=== PATIENT | male | born 1935 | race Caucasian/White ===

== ENCOUNTER 2018-04-11 18:35 | Inpatient (IN) | payer MEDICARE, BC ==
[~2018-04-11] VITALS: Ht 175.3 cm; Wt 108.0 kg
[~2018-04-11 18:35] MED LIST: CETI10TA14 PO; DOCU-141 PO; ENAL5TAB PO; FLUT1DIS3 IH; IPRA3AMP23 IH; LOVA20TA2 PO; MONT10TA22 PO; PANT40TA2 PO; PRED20TA PO; SENN-168 PO; WARF10TA22 PO; WARF7.5T23 PO
--- NOTE | 2018-04-11 18:56 | NUR ---
PT BIB [facility] C/O L GROIN PAIN AND SWELLING WHICH HAS BEEN MILD FOR A FEW DAYS BUT BECAME VERY SEVERE THIS MORNING. NO DISCOLORATION OR RASH NOTED, INITIALLY REPORTED BY PT. DISTAL CMS INTACT. 30YR HX OF L KNEE REPLACEMENT. DENIES PAIN OR SWELLING IN TESTICLES OR SCROTUM. PT IS SHORT OF BREATH BUT HAS HX OF COPD AND ASTHMA, STATES THAT THIS IS HIS BASELINE LEVEL OF SOB. PLACED ON 3L O2 VIA NC WHICH IS CONTINUOUS IN-HOME O2. SKIN WARM DRY. IN ER BED 09.
--- NOTE | 2018-04-11 19:14 | NUR ---
REPORT GIVEN TO BRONWYN TELLES FOR EDUARDO
--- NOTE | 2018-04-11 19:20 | NUR ---
IV INITIATED LEFT WRIST 18G. LABS DRAWN FROM SITE. MECHANICAL SYSTEMS DESIGNER AT BEDSIDE FOR COLLECTION. IV INTACT AND PATENT, PLACED ON SALINE LOCK
--- NOTE | 2018-04-11 19:28 | NUR ---
US AT BEDSIDE
[2018-04-11 19:35] LABS: BASOPHILS % (AUTO) 0.3 % (0.0-2.0); HEMATOCRIT 32 % (39-51); HEMOGLOBIN 10.4 g/dL (13.5-17.5); LYMPHOCYTES # (AUTO) 0.7 /CMM (0.8-4.8); LYMPHOCYTES % (AUTO) 5.1 % (20.0-44.0); MEAN CORPUSCULAR HGB CONC 32 g/dl (31.0-36.0); MEAN CORPUSCULAR VOLUME 91 fL (80-96); MONOCYTES # (AUTO) 1.3 /CMM (0.1-1.30); MONOCYTES % (AUTO) 9.2 % (2.0-12.0); NEUTROPHILS # (AUTO) 12.2 /CMM (1.8-8.9); NEUTROPHILS % (AUTO) 85.4 % (43.0-81.0); PLATELET COUNT (AUTO) 260 /CMM (150-450); RED BLOOD CELL COUNT(AUTO) 3.54 MIL/uL (4.5-6.0); WHITE BLOOD COUNT (AUTO) 14.3 K/uL (4.3-11.0)
[2018-04-11 19:43] LABS: CALCIUM, SERUM 9.2 mg/dL (8.5-10.1); CARBON DIOXIDE 28 mmol/L (21-32); CHLORIDE 103 mmol/L (98-107); CREATININE 0.7 mg/dL (0.6-1.3); GLUCOSE 144 mg/dL (74-106); POTASSIUM 4.8 mmol/L (3.5-5.1); SODIUM SERUM 138 mmol/L (136-145); UREA NITROGEN, BLOOD 22 mg/dL (7-18)
[2018-04-11 19:48] LABS: ALANINE AMINOTRANSFERASE 20 U/L (12-78); ALKALINE PHOSPHATASE 87 U/L (46-116); ASPARTATE AMINOTRANSFERASE 16 U/L (15-37); BILIRUBIN,DIRECT 0.3 mg/dL (0.0-0.2); BILIRUBIN,TOTAL 0.9 mg/dL (0.2-1.0); TOTAL PROTEIN, SERUM 6.2 g/dL (6.4-8.2)
[2018-04-11] MEDS ORDERED: IOHEXOL-300 100 ML VIAL IV ONE ×2 (20:25→21:58)
[2018-04-11] MEDS ORDERED: CT SWABBABLE VALVE TRANS SET 1 EA INFUS.SET MC ONE ×2 (20:25→21:58)
[2018-04-11] MEDS ORDERED: IV NS 0.9% 250 ML IV ONE ×2 (20:26→21:58)
--- NOTE | 2018-04-11 21:15 | NUR ---
DR. VASQUEZ, RADIOLOGY ON PHONE W/ DR. PATTON
--- NOTE | 2018-04-11 21:37 | NUR ---
Dr. Griffin, Vascular on phone w/ Dr. Morelos
[2018-04-11] MEDS ORDERED: PHYTONADIONE INJ 10 MG/1 ML AMPUL ONE (21:39)
--- NOTE | 2018-04-11 21:56 | NUR ---
BROUGHT BY RADIOLOGY FOR CT
[2018-04-11] MEDS ORDERED: NS 0.9% IV ONE (22:00)
[2018-04-11] MEDS ORDERED: IOHEXOL-350 100 ML VIAL IV ONE ×2 (22:00→22:14)
[2018-04-11] MEDS ORDERED: PHYTONADIONE IV ONE (22:00)
[2018-04-11 22:50] LABS: BASOPHILS % (AUTO) 0.2 % (0.0-2.0); HEMATOCRIT 27 % (39-51); HEMOGLOBIN 8.9 g/dL (13.5-17.5); LYMPHOCYTES # (AUTO) 0.9 /CMM (0.8-4.8); LYMPHOCYTES % (AUTO) 6.6 % (20.0-44.0); MEAN CORPUSCULAR HGB CONC 33 g/dl (31.0-36.0); MEAN CORPUSCULAR VOLUME 90 fL (80-96); MONOCYTES # (AUTO) 1.5 /CMM (0.1-1.30); MONOCYTES % (AUTO) 10.7 % (2.0-12.0); NEUTROPHILS # (AUTO) 11.3 /CMM (1.8-8.9); NEUTROPHILS % (AUTO) 82.5 % (43.0-81.0); PLATELET COUNT (AUTO) 210 /CMM (150-450); WHITE BLOOD COUNT (AUTO) 13.8 K/uL (4.3-11.0)
[2018-04-11] MEDS ORDERED: ALBUTEROL FS 2.5 MG/0.5 ML VIAL.NEB ONE (23:15)
[2018-04-11] MEDS ORDERED: ALBUTEROL FS 2.5 MG/0.5 ML VIAL.NEB NEB ONE (23:30)
--- NOTE | 2018-04-11 23:47 | NUR ---
ADMIT GUY 117-2 DX: HEMATOMA TU LAGUERRE TELECOMMUNICATIONS TECHNICIAN
--- NOTE | 2018-04-11 23:48 | NUR ---
PER VERBAL MD ORDER, SECOND EKG CANCELLED.
--- NOTE | 2018-04-11 23:56 | NUR ---
GAVE REPORT TO BELLE TELLES FOR EDUARDO
--- NOTE | 2018-04-12 00:05 | NUR ---
PT TRANSFERRED PER ACLS PROTOCOL
--- NOTE | 2018-04-12 00:05 | NUR ---
vicente notes admitted a 82 y/o male able to make needs known , with admitting dx of left hip hematoma, admission routine care rendered orders noted and carried out body check done noted with bilateral le and avinash ue noted with multiple discoloration, all needs attended too call light within reach,pts with admitting dx of left hip hematoma.pts is knda full code status ,will continue to monitor.v/s stable afebrile. pts remains on ns at 75cc/hr.infusing well.
[2018-04-12 00:19] VITALS: BP 121/49
[2018-04-12] MEDS ORDERED: ZOLPIDEM TARTRATE 5 MG TABLET PO PRN (01:00)
[2018-04-12] MEDS ORDERED: MAGNESIUM HYDROXIDE 30 ML UDC PO PRN (01:00)
[2018-04-12] MEDS ORDERED: ACETAMINOPHEN 325 MG TABLET PO PRN (01:00)
[2018-04-12] MEDS ORDERED: Z GUARD REMEDY 2 OZ OINT TP PRN (01:00)
[2018-04-12] MEDS ORDERED: ONDANSETRON HCL/PF 4 MG/2 ML VIAL IVP PRN (01:00)
[2018-04-12] MEDS ORDERED: MAG HYDROX/AL HYDROX/SIMETH 30 ML UDC PO PRN (01:00)
[2018-04-12] MEDS: IV NS 0.9% 1,000 ML IV PRN ×2 (02:45→16:50)
[2018-04-12 04:00] VITALS: BP 104/54
[2018-04-12 06:24] LABS: CALCIUM, SERUM 8.6 mg/dL (8.5-10.1); CARBON DIOXIDE 26 mmol/L (21-32); CHLORIDE 105 mmol/L (98-107); CREATININE 0.8 mg/dL (0.6-1.3); GLUCOSE 127 mg/dL (74-106); MAGNESIUM 1.9 mg/dL (1.8-2.4); POTASSIUM 4.7 mmol/L (3.5-5.1); SODIUM SERUM 139 mmol/L (136-145); UREA NITROGEN, BLOOD 22 mg/dL (7-18)
[2018-04-12] MEDS: ALBUTEROL FS 2.5 MG/3 ML VIAL.NEB NEB PRN ×2 (06:35→23:07)
[2018-04-12 06:40] LABS: HEMATOCRIT 27 % (39-51); LYMPHOCYTES # (AUTO) 0.9 /CMM (0.8-4.8); LYMPHOCYTES % (AUTO) 7.2 % (20.0-44.0); MEAN CORPUSCULAR HGB CONC 33 g/dl (31.0-36.0); MEAN CORPUSCULAR VOLUME 90 fL (80-96); MONOCYTES # (AUTO) 1.4 /CMM (0.1-1.30); MONOCYTES % (AUTO) 11.3 % (2.0-12.0); NEUTROPHILS # (AUTO) 9.9 /CMM (1.8-8.9); NEUTROPHILS % (AUTO) 81.5 % (43.0-81.0); PLATELET COUNT (AUTO) 266 /CMM (150-450); RED BLOOD CELL COUNT(AUTO) 3.04 MIL/uL (4.5-6.0); WHITE BLOOD COUNT (AUTO) 12.2 K/uL (4.3-11.0)
--- NOTE | 2018-04-12 06:59 | NUR ---
london rn note s pts remains in bed no maria del rosario noted all needs attended too call light within reach kep pts clean dry and comfortable.will endorse to next rn day shift for continuity of care,
--- NOTE | 2018-04-12 07:25 | NUR ---
RN OPENING NOTE RECEIVED PT ON BED ASLEEP BUT EASILY AWAKEN. A&OX3. NO SIGNS AND SYMPTOMS OF ANY DISTRESS. NO COMPLAINS OF ANY PAIN AT THIS TIME. SKIN IS INTACT EXCEPT FOR LEFT THIGH HEMATOMA. AND DISCOLORATION OF BLE. NS RUNNING AT 75 ML/HR. HAS LEFT WRIST IV #18 AND RIGHT HAND #18. SAFETY MEASURES CHECKED. BED LOCKED AND IN LOWEST POSITION. CALL LIGHT WITHIN REACH. WILL CONT TO MONITOR.
[2018-04-12 08:00] VITALS: BP 121/66
[2018-04-12] MEDS ORDERED: PANTOPRAZOLE 40 MG VIAL IV SCH (09:00)
[2018-04-12] MEDS: HYDROCODONE/APAP 5/325MG 1 EACH TABLET PO PRN (09:29)
[2018-04-12 12:00] VITALS: BP 114/54
[2018-04-12] MEDS ORDERED: FURO-144 PO (13:44)
--- NOTE | 2018-04-12 14:00 | NUR ---
RN NOTE CLARIFIED WITH MARY ANNE OSULLIVAN NP ABOUT THE PLASMA ORDER. OK'D TO DC.
[2018-04-12 16:00] VITALS: BP 109/58
[2018-04-12] MEDS: DOCUSATE SODIUM 100 MG CAPSULE PO SCH (16:40)
[2018-04-12] MEDS: ENALAPRIL MALEATE (5 MG) 5 MG TABLET PO SCH (16:41)
--- NOTE | 2018-04-12 19:23 | NUR ---
RN CLOSING NOTE REPORT GIVEN TO NOC SHIFT. PATIENT AWAKE AND ALERT WATCHING TV. ALERT AND ORIENTED X3-4. IV FLUIDS RUNNING NS AT 75 CC/HR. NO COMPLAINS OF ANY PAIN AT THIS TIME. WAS GIVEN NORCO FOR PAIN NO DISTRESS OR ANY SOB. ON 3L NC SATING 98%. DIAPER CHANGED 3X FOR DAY SHIFT. NO BM. WAS GIVEN COLACE PER MD ORDER. BED LOCKED AND ON LOWEST POSITION. CALL LIGHT WITHIN REACH. WILL ENDORSE TO NOC SHIFT.
[2018-04-12 20:00] VITALS: BP 103/51
--- NOTE | 2018-04-12 20:00 | NUR ---
AUTOMATION CONTROLS SPECIALIST NOTES RECEIVED PT AOX4 COMFORTABLE IN BED. ON MONITOR V PACING 80. VS STABLE AFEBRILE. PT ON NC 3L OF O2 SATING 95%. NO SOB. NO DISTRESS NOTED. PAIN 0. DUE MEDS GIVEN ORDERED. ALL NEEDS ATTENDED TO. CALL LIGHT WITHIN REACH. KEEP PATIENT COMFORTABLE. BED ON LOCK AND LOWEST POSITION. WILL CONTINUE TO MONITOR.
[2018-04-12] MEDS: MONTELUKAST SODIUM (10MG) 10 MG TABLET PO SCH (21:21)
[2018-04-12] MEDS: ATORVASTATIN 10 MG TABLET PO SCH (21:21)
[2018-04-12] MEDS: PANTOPRAZOLE 40 MG TABLET.DR PO SCH (21:21)
[2018-04-12] MEDS: SENNOSIDES 8.6 MG TABLET PO SCH (21:21)
[2018-04-13] VITALS: BP 110/50
[2018-04-13 04:00] VITALS: BP 110/59
[2018-04-13] MEDS: ALBUTEROL FS 2.5 MG/3 ML VIAL.NEB NEB PRN ×6 (04:07→23:54)
--- NOTE | 2018-04-13 06:42 | NUR ---
BELT BRANDER NOTES PT STABLE. NO COMPLAINTS OF PAIN. NO DISTRESS NOTED. NO EDUARDO NOTED. BED LOCKED AND AT LOWEST POSITION. SAFETY MEASURES FOLLOWED AT ALL TIMES. WILL ENDORSE TO AM NURSE FOR CONTINUITY OF CARE.
[2018-04-13 07:08] LABS: HEMATOCRIT 22 % (39-51); HEMOGLOBIN 7.1 g/dL (13.5-17.5); LYMPHOCYTES # (AUTO) 0.8 /CMM (0.8-4.8); LYMPHOCYTES % (AUTO) 6.6 % (20.0-44.0); MEAN CORPUSCULAR HGB CONC 33 g/dl (31.0-36.0); MEAN CORPUSCULAR VOLUME 90 fL (80-96); MONOCYTES # (AUTO) 1.8 /CMM (0.1-1.30); MONOCYTES % (AUTO) 14.1 % (2.0-12.0); NEUTROPHILS # (AUTO) 10.1 /CMM (1.8-8.9); NEUTROPHILS % (AUTO) 79.3 % (43.0-81.0); PLATELET COUNT (AUTO) 208 /CMM (150-450); WHITE BLOOD COUNT (AUTO) 12.7 K/uL (4.3-11.0)
--- NOTE | 2018-04-13 07:26 | NUR ---
RN OPENING NOTE RECEIVED PT ON BED AWAKE WATCHING TV. A&OX3-4. NO SIGNS AND SYMPTOMS OF ANY DISTRESS. NO COMPLAINS OF ANY PAIN AT THIS TIME. SKIN IS INTACT EXCEPT FOR LEFT THIGH HEMATOMA. AND DISCOLORATION OF BLE. NS RUNNING AT 75 ML/HR. HAS LEFT WRIST IV #18 AND RIGHT HAND #18. SAFETY MEASURES CHECKED. BED LOCKED AND IN LOWEST POSITION. CALL LIGHT WITHIN REACH. WILL CONT TO MONITOR THROUGHOUT THE SHIFT
[2018-04-13 07:31] LABS: CHOLESTEROL 83 mg/dL (<200); HDL CHOLESTEROL 39 mg/dL (40-60); LDL 37 mg/dL (0-99); TRIGLYCERIDES 57 mg/dL (30-150)
[2018-04-13 07:32] LABS: ALANINE AMINOTRANSFERASE 15 U/L (12-78); ALBUMIN 2.4 g/dL (3.4-5.0); ALKALINE PHOSPHATASE 60 U/L (46-116); ASPARTATE AMINOTRANSFERASE 19 U/L (15-37); BILIRUBIN,TOTAL 0.6 mg/dL (0.2-1.0); CALCIUM, SERUM 8.3 mg/dL (8.5-10.1); CARBON DIOXIDE 26 mmol/L (21-32); CHLORIDE 108 mmol/L (98-107); CREATININE 0.7 mg/dL (0.6-1.3); GLUCOSE 118 mg/dL (74-106); POTASSIUM 4.4 mmol/L (3.5-5.1); SODIUM SERUM 142 mmol/L (136-145); TOTAL PROTEIN, SERUM 5.1 g/dL (6.4-8.2); UREA NITROGEN, BLOOD 27 mg/dL (7-18)
[2018-04-13 08:00] VITALS: BP 117/55
[2018-04-13] MEDS: IV NS 0.9% 1,000 ML IV PRN ×2 (08:11→23:46)
[2018-04-13] MEDS: HYDROCODONE/APAP 5/325MG 1 EACH TABLET PO PRN ×2 (08:15→16:33)
[2018-04-13] MEDS: DOCUSATE SODIUM 100 MG CAPSULE PO SCH ×2 (08:40→16:22)
[2018-04-13] MEDS: cetrizine 10 MG TABLET PO SCH (08:40)
[2018-04-13] MEDS: predniSONE 10 MG TABLET PO SCH (08:41)
[2018-04-13] MEDS: ENALAPRIL MALEATE (5 MG) 5 MG TABLET PO SCH ×2 (08:41→16:27)
[2018-04-13] MEDS: FLUTICASONE/VILANTEROL 1 EACH BLST.W.DEV IH SCH (08:43)
[2018-04-13] MEDS ORDERED: FLUTICASONE/SALMETEROL DISKUS IH SCH (09:00)
--- NOTE | 2018-04-13 11:17 | NUR ---
O2 FLOW DECREASED TO 2 LPM SPO2 97% TO 99% Addendum: 04/13/18 at 1117 by JOSE ROBERTO LAM RT Amended: Links added.
[2018-04-13 12:00] VITALS: BP_SYST 108; BP_SYST 127; BP_DIAS 51; BP_DIAS 76
[2018-04-13] MEDS: PANTOPRAZOLE 40 MG TABLET.DR PO SCH ×2 (13:53→21:32)
[2018-04-13 16:00] VITALS: BP 114/52
--- NOTE | 2018-04-13 19:00 | NUR ---
RN NOTES RECEIVED PATIENT AWAKE,ALERT,NOT IN ANY DISTRESS,CONVERSES,COHERENT AND APPROPRIATE.NOTED BOTH LOWER EXTREMITY SWELLING( M0RE ON THE LEFT) WITH HEMATOMA LEFT THIGH(STATES IT HURTS AND UNABLE TO MOVE LEFT LEG DUE TO PAIN AND SWELLING).COMFORT CARE DONE ,NEEDS ATTENDED.
--- NOTE | 2018-04-13 19:08 | NUR ---
RN CLOSING NOTE REPORT GIVEN TO NOC SHIFT RN. PATIENT ON BED AWAKE AND WATCHING TV. A&Ox4. NO COMPLAINS OF ANY PAIN AT THIS TIME. NO DISTRESS NO SOB. ON 2L NC AND SATING WELL AT 98%. DOCTOR ISAIAH OBRIEN'D THE PROTONIX IV DUE TO DUPLICATION. PATIENT ATE HIS FOOD BETTER COMPARED TO YESTERDAY. NO BOWEL MOVEMENT IN MY SHIFT. REPEAT CBC ORDERED FOR TOMORROW. IV RUNNING NS AT 75CC/HR. ASKED FOR NORCO TWICE TODAY. BED LOCKED AND ON LOWEST POSITION. CALL LIGHT WITHIN REACH. ALL NEEDS MET DURING AM SHIFT.
[2018-04-13 20:00] VITALS: BP 99/49
[2018-04-13] MEDS: ATORVASTATIN 10 MG TABLET PO SCH (21:32)
[2018-04-13] MEDS: SENNOSIDES 8.6 MG TABLET PO SCH (21:32)
[2018-04-13] MEDS: MONTELUKAST SODIUM (10MG) 10 MG TABLET PO SCH (21:32)
--- NOTE | 2018-04-13 23:54 | NUR ---
RN NOTES REMAINS STABLE,AWAKE,ALERT,NOT IN ANY DISTRESS.CARE TRANSFERED TO BAN TELLES ,REPORT GIVEN.
[2018-04-14] VITALS: BP 123/65
[2018-04-14 04:00] VITALS: BP 120/60
[2018-04-14] MEDS: ALBUTEROL FS 2.5 MG/3 ML VIAL.NEB NEB PRN ×4 (04:11→21:08)
[2018-04-14] MEDS: HYDROCODONE/APAP 5/325MG 1 EACH TABLET PO PRN ×2 (05:42→11:46)
--- NOTE | 2018-04-14 05:50 | NUR ---
TELE-1/BACK GRINDER PT NOTED WITH MORE SCROTAL SWELLING AND BRUISING THAN PREVIOUSLY NOTED. PICTURE TAKEN AND PLACED IN CHART. WILL ENDORSE TO AM SHIFT TO FOLLOW UP WITH MEDICAL TEAM. PT MEDICATED FOR PAIN. WILL CONTINUE TO MONITOR.
[2018-04-14 06:17] LABS: BASOPHILS % (AUTO) 0.1 % (0.0-2.0); HEMATOCRIT 21 % (39-51); LYMPHOCYTES # (AUTO) 0.9 /CMM (0.8-4.8); LYMPHOCYTES % (AUTO) 8.1 % (20.0-44.0); MEAN CORPUSCULAR HGB CONC 33 g/dl (31.0-36.0); MEAN CORPUSCULAR VOLUME 91 fL (80-96); MONOCYTES # (AUTO) 1.3 /CMM (0.1-1.30); MONOCYTES % (AUTO) 11.3 % (2.0-12.0); NEUTROPHILS # (AUTO) 9.3 /CMM (1.8-8.9); NEUTROPHILS % (AUTO) 80.5 % (43.0-81.0); PLATELET COUNT (AUTO) 222 /CMM (150-450); RED BLOOD CELL COUNT(AUTO) 2.31 MIL/uL (4.5-6.0); WHITE BLOOD COUNT (AUTO) 11.6 K/uL (4.3-11.0)
[2018-04-14 06:22] LABS: HEMOGLOBIN 6.9 g/dL (13.5-17.5)
--- NOTE | 2018-04-14 06:28 | NUR ---
TELE-1/WELLNESS PROGRAM MANAGER PT HGB 6.9 1UNIT PRBC ORDERED PER STANDING ORDER. WILL ENDORSE TO AM SHIFT.
[2018-04-14 06:32] LABS: CALCIUM, SERUM 8.5 mg/dL (8.5-10.1); CARBON DIOXIDE 29 mmol/L (21-32); CHLORIDE 109 mmol/L (98-107); CREATININE 0.7 mg/dL (0.6-1.3); GLUCOSE 125 mg/dL (74-106); MAGNESIUM 2.1 mg/dL (1.8-2.4); PHOSPHORUS 3.1 mg/dL (2.5-4.9); POTASSIUM 4.6 mmol/L (3.5-5.1); SODIUM SERUM 145 mmol/L (136-145); UREA NITROGEN, BLOOD 26 mg/dL (7-18)
[2018-04-14 06:46] LABS: FERRITIN 118 ng/mL (8-388)
[2018-04-14 06:47] LABS: IRON, SERUM 11 ug/dl (50-175); TOTAL IRON BINDING CAPACITY 169 ug/dl (250-450)
[2018-04-14 06:56] LABS: LYMPHOCYTES % (MANUAL) 10 % (16-48); MONOCYTES % (MANUAL) 12 % (0-11.0); NEUTROPHILS % (MANUAL) 78 (42-76)
--- NOTE | 2018-04-14 07:56 | NUR ---
RN NOTES RECEIVED PT ON BED ASLEEP BUT EASILY AWAKEN. A&OX3. NOT ON ANY FORM OF DISTRESS. WITH NASAL CANNULA O2 ON 2LPM, SATING AT 93%, V PACING ON THE MONITOR HR AT 76, IV LINE ON THE THE L WRIST AND R HAND BOTH G 18: IN PLACE AND INTACT. NS AT 75 CC/HR INFUSING WELL OVER THE L WRIST. SKIN IS INTACT, WITH LEFT THIGH HEMATOMA, DISCOLORATION OF BLE AND SWELLING OF THE SCROTUM. HOB ELEVATED. ENCOURAGE TO CALL FOR SAFETY. SAFETY MEASURES OBSERVED AND MAINTAINED. BED LOCKED AND IN LOWEST POSITION. CALL LIGHT WITHIN REACH. WILL CONT TO MONITOR.
[2018-04-14 08:00] VITALS: BP 117/57
[2018-04-14] MEDS: ENSURE ENLIVE 237 ML LIQUID (VANILLA) PO SCH ×3 (08:41→17:18)
[2018-04-14] MEDS: cetrizine 10 MG TABLET PO SCH (08:42)
[2018-04-14] MEDS: PANTOPRAZOLE 40 MG TABLET.DR PO SCH ×2 (08:42→20:57)
[2018-04-14] MEDS: ENALAPRIL MALEATE (5 MG) 5 MG TABLET PO SCH ×2 (08:42→17:00)
[2018-04-14] MEDS: FLUTICASONE/VILANTEROL 1 EACH BLST.W.DEV IH SCH (08:42)
[2018-04-14] MEDS: DOCUSATE SODIUM 100 MG CAPSULE PO SCH ×2 (08:42→17:15)
[2018-04-14] MEDS: predniSONE 10 MG TABLET PO SCH (08:42)
[2018-04-14] MEDS ORDERED: IV NS 0.9% 250 ML IV ONE (09:00)
--- NOTE | 2018-04-14 11:00 | NUR ---
RN NOTES INFORMED THAT BLOOD TRANSFUSION WAS DONE, DR COLON ASKED IF HE WOULD WANT ANOTHER H & H, BUT VERBALIZED THAT TOMORROW CHECK IS FINE.
--- NOTE | 2018-04-14 13:24 | NUR ---
RN NOTES PAGED DR COLON REGARDING PATIENT'S CONCERN ON BREATHING TREATMENT, AWAITING RESPONSE
--- NOTE | 2018-04-14 15:30 | NUR ---
RN NOTES REPAGED DR COLON REGARDING PATIENT'S CONCERN ON BREATHING TREATMENT AND FAMILY'S CONCERN, AWAITING PATIENT'S RESPONSE
[2018-04-14 16:00] VITALS: BP 112/48
[2018-04-14] MEDS: SOD FERRIC GLUC 125 MG in IV NS 0.9% 100 ML IV SCH (16:18)
[2018-04-14] MEDS: IV NS 0.9% 1,000 ML IV PRN (16:19)
--- NOTE | 2018-04-14 17:00 | NUR ---
RN NOTES ENALAPRIL NOT GIVEN DUE TO DIASTOLIC BLOOD PRESSURE BELOW PARAMETER.
--- NOTE | 2018-04-14 19:30 | NUR ---
RN NOTES ENDORSED PATIENT FOR CONTINUITY OF CARE. PT IN STABLE CONDITION. NO ACUTE CHANGES THROUGHOUT SHIFT. SAFETY MEASURES AND ASPIRATION PRECAUTION OBSERVED AT ALL TIMES. ALL NEEDS ANTICIPATED. ENDORSED TO INCOMING RN ABOUT PATIENT AND ADITYALY'S CONCERNS
[2018-04-14 19:49] VITALS: BP 111/52
[2018-04-14] MEDS: SENNOSIDES 8.6 MG TABLET PO SCH (21:00)
[2018-04-14] MEDS: MONTELUKAST SODIUM (10MG) 10 MG TABLET PO SCH (21:01)
[2018-04-14] MEDS: ATORVASTATIN 10 MG TABLET PO SCH (21:01)
--- NOTE | 2018-04-14 21:30 | NUR ---
RN NOTES, INFORMED DIONICIO LAGUERRE HEAVY DUTY MECHANIC ABOUT PATIENT AND FAMILY CONCERNS ABOUT EXCESSIVE SWOLLEN AND DISCOLORATION IN PATIENT'S SCROTUM, AND HE REPLIED WITH NEW ORDER FOR ULTRASOUND OF SCROTUM IN THE MORNING, ALSO INFORMED THAT PATIENT IS REQUESTING THE BREATHING TREATMENT AROUND THE CLOCK WHEN ORDER IS PRN, AND PATIENT STATEMENT THAT HE NEEDS THE TREATMENT ROUTINE, AND HE REPLIED WITH ORDER TO DC THE PRN ORDER AND START BREATHING TREATMENT Q4HRS ROUTINE, NOTED AND CARRIED OUT.
[2018-04-15] MEDS: ALBUTEROL FS 2.5 MG/3 ML VIAL.NEB NEB SCH ×7 (01:46→23:43)
[2018-04-15] MEDS: HYDROCODONE/APAP 5/325MG 1 EACH TABLET PO PRN ×2 (03:49→21:53)
[2018-04-15 04:00] VITALS: BP 118/60
[2018-04-15 06:57] LABS: HEMATOCRIT 22 % (39-51); HEMOGLOBIN 7.5 g/dL (13.5-17.5); LYMPHOCYTES # (AUTO) 0.7 /CMM (0.8-4.8); LYMPHOCYTES % (AUTO) 7.6 % (20.0-44.0); MEAN CORPUSCULAR HGB CONC 34 g/dl (31.0-36.0); MEAN CORPUSCULAR VOLUME 91 fL (80-96); MONOCYTES # (AUTO) 1.2 /CMM (0.1-1.30); MONOCYTES % (AUTO) 13.6 % (2.0-12.0); NEUTROPHILS # (AUTO) 7.2 /CMM (1.8-8.9); NEUTROPHILS % (AUTO) 78.8 % (43.0-81.0); PLATELET COUNT (AUTO) 214 /CMM (150-450); RED BLOOD CELL COUNT(AUTO) 2.43 MIL/uL (4.5-6.0); WHITE BLOOD COUNT (AUTO) 9.2 K/uL (4.3-11.0)
[2018-04-15 07:26] LABS: CALCIUM, SERUM 8.5 mg/dL (8.5-10.1); CARBON DIOXIDE 28 mmol/L (21-32); CHLORIDE 109 mmol/L (98-107); CREATININE 0.7 mg/dL (0.6-1.3); GLUCOSE 141 mg/dL (74-106); POTASSIUM 4.2 mmol/L (3.5-5.1); SODIUM SERUM 143 mmol/L (136-145); UREA NITROGEN, BLOOD 26 mg/dL (7-18)
--- NOTE | 2018-04-15 07:45 | NUR ---
RN NOTE: RECEIVED PATIENT IN BED, AWAKE, ALERT AND VERBALLY RESPONSIVE. RESPIRATION WAS EVEN AND UNLABORED SATURATING 98% IN O2 2L/MIN VIA NC. DENIED ANY PAIN. (L) FA IV SITE NOTED PATENT AND INTACT INFUSING NS @75ML/HR. HOB ELEVATED. BED ALARMED AND LOCKED AT ALL TIMES. CALL LIGHT WITHIN REACH. NEEDS ANTICIPATED.
[2018-04-15] MEDS: ENSURE ENLIVE 237 ML LIQUID (VANILLA) PO SCH ×3 (07:54→18:14)
[2018-04-15 08:00] VITALS: BP 129/58
[2018-04-15 08:09] LABS: IMMUNOGLOBULIN A, SERUM 42 mg/dL (61-437); IMMUNOGLOBULIN G, SERUM 302 mg/dL (700-1600); IMMUNOGLOBULIN M, SERUM 620 mg/dL (15-143)
--- NOTE | 2018-04-15 08:32 | NUR ---
WOUND CARE CONSULT: PT FOLLOWED BY PLASTIC SURGEON FOR WOUND CARE. DEFER TO SURGICAL TEAM FOR WOUND TREATMENT PLAN. DISCUSSED PRESSURE ULCER PREVENTION WITH NURSING STAFF. WILL SEE PRN. PT ON ELMO ISOFLEX LOW AIRLOSS BED.
[2018-04-15] MEDS: PANTOPRAZOLE 40 MG TABLET.DR PO SCH ×2 (08:53→21:45)
[2018-04-15] MEDS: DOCUSATE SODIUM 100 MG CAPSULE PO SCH ×2 (08:53→16:38)
[2018-04-15] MEDS: predniSONE 10 MG TABLET PO SCH (08:53)
[2018-04-15] MEDS: FLUTICASONE/VILANTEROL 1 EACH BLST.W.DEV IH SCH (08:53)
[2018-04-15] MEDS: cetrizine 10 MG TABLET PO SCH (08:54)
[2018-04-15] MEDS: ENALAPRIL MALEATE (5 MG) 5 MG TABLET PO SCH ×2 (08:54→16:38)
[2018-04-15 10:19] LABS: *SPE ALBUMIN 2.5 g/dL (2.9-4.4); *SPE ALPHA-1-GLOBULIN 0.4 g/dL (0.0-0.4); *SPE ALPHA-2-GLOBULIN 0.7 g/dL (0.4-1.0); *SPE BETA GLOBULIN 0.6 g/dL (0.7-1.3); *SPE GLOBULIN, TOTAL 2.6 g/dL (2.2-3.9); *SPE M-SPIKE Note: g/dL (Not Observed); *SPEGAMMA GLOBULIN 0.8 g/dL (0.4-1.8)
[2018-04-15] MEDS: IV NS 0.9% 1,000 ML IV PRN (11:57)
[2018-04-15 12:00] VITALS: BP 139/50
[2018-04-15] MEDS: SOD FERRIC GLUC 125 MG in IV NS 0.9% 100 ML IV SCH (13:48)
[2018-04-15] MEDS: LEVOFLOXACIN 500 MG /D5W 100ML 500 MG in PREMIX 1 EA IV SCH (15:01)
[2018-04-15 16:00] VITALS: BP 121/44
[2018-04-15] MEDS: IPRATROPIUM NEB FS 0.5 MG/2.5 ML AMPUL.NEB NEB SCH ×2 (19:54→23:43)
[2018-04-15 20:00] VITALS: BP 123/57
--- NOTE | 2018-04-15 20:00 | NUR ---
GUY RN NOTES RECEIVED PT IN BED A/A&OX4. NOT ON ANY FORM OF DISTRESS. WITH NASAL CANNULA O2 ON 2LPM, SATING > 95%, IV LINE IN PLACE AND INTACT. SKIN IS INTACT, WITH LEFT THIGH HEMATOMA, DISCOLORATION OF BLE AND SWELLING OF THE SCROTUM. HOB ELEVATED. ENCOURAGE TO CALL FOR SAFETY. SAFETY MEASURES OBSERVED AND MAINTAINED. BED LOCKED AND IN LOWEST POSITION. CALL LIGHT WITHIN REACH. WILL CONT TO MONITOR.
--- NOTE | 2018-04-15 20:11 | NUR ---
RN NOTE: PATIENT REMAINED ON STABLE CONDITION. REPORT GIVEN TO PM SHIFT NURSE FOR CONTINUITY OF CARE.
[2018-04-15] MEDS: ATORVASTATIN 10 MG TABLET PO SCH (21:45)
[2018-04-15] MEDS: MONTELUKAST SODIUM (10MG) 10 MG TABLET PO SCH (21:45)
[2018-04-15] MEDS: SENNOSIDES 8.6 MG TABLET PO SCH (21:45)
--- NOTE | 2018-04-15 22:00 | NUR ---
RN NOTES PATIENT HAS BEEN OFFERED TO BE CLEANED, TURNED AND REPOSITIONED BUT PATIENT REFUSED AT THIS TIME BY SAYING THAT IT WILL LANDRY. ALL RISKS AND BENEFITS HAVE BEEN EXPLAINED TO THE PATIENT. WILL TRY LATER AGAIN.
[2018-04-16] MEDS: ALBUTEROL FS 2.5 MG/3 ML VIAL.NEB NEB SCH ×6 (03:53→23:06)
[2018-04-16] MEDS: IPRATROPIUM NEB FS 0.5 MG/2.5 ML AMPUL.NEB NEB SCH ×6 (03:53→23:06)
[2018-04-16 04:00] VITALS: BP 141/66
[2018-04-16] MEDS: HYDROCODONE/APAP 5/325MG 1 EACH TABLET PO PRN ×2 (06:57→16:59)
--- NOTE | 2018-04-16 07:36 | NUR ---
RN NOTES RECEIVED REPORT FROM FILTER BED PLACER RN. PT IS SITTING IN BED RECEIVING BREAKFAST. FILTER BED PLACER RN GAVE PT NORCO JUST BEFORE ONCOMING SHIFT SEE FILTER BED PLACER NURSE FOR REASSESSMENT. PT IS AWAKE AND ALERT AND STATES THAT HE WOULD LIKE TO BE CHANGED AFTER THE NORCO KICKS IN AND AFTER HE FINISHES BREAKFAST. PT STATES THAT HE HAS NO DIFFICULTLY BREATHING AT PRESENT MOMENT. PT IS ON 2 L O2 VIA NC SAT AT 98%. PT HAS A 20 GAUGE ON L FOREARM.
[2018-04-16] MEDS: ENSURE ENLIVE 237 ML LIQUID (VANILLA) PO SCH ×3 (07:47→18:08)
[2018-04-16 08:00] VITALS: BP 119/62
[2018-04-16 08:08] LABS: BASOPHILS % (AUTO) 0.1 % (0.0-2.0); HEMATOCRIT 22 % (39-51); HEMOGLOBIN 7.5 g/dL (13.5-17.5); LYMPHOCYTES # (AUTO) 0.8 /CMM (0.8-4.8); MEAN CORPUSCULAR HGB CONC 34 g/dl (31.0-36.0); MEAN CORPUSCULAR VOLUME 91 fL (80-96); NEUTROPHILS # (AUTO) 6.9 /CMM (1.8-8.9); NEUTROPHILS % (AUTO) 78.9 % (43.0-81.0); PLATELET COUNT (AUTO) 249 /CMM (150-450); RED BLOOD CELL COUNT(AUTO) 2.44 MIL/uL (4.5-6.0); WHITE BLOOD COUNT (AUTO) 8.7 K/uL (4.3-11.0)
[2018-04-16 08:12] LABS: CALCIUM, SERUM 8.8 mg/dL (8.5-10.1); CARBON DIOXIDE 30 mmol/L (21-32); CHLORIDE 108 mmol/L (98-107); CREATININE 0.6 mg/dL (0.6-1.3); GLUCOSE 104 mg/dL (74-106); POTASSIUM 4.6 mmol/L (3.5-5.1); SODIUM SERUM 144 mmol/L (136-145); UREA NITROGEN, BLOOD 23 mg/dL (7-18)
[2018-04-16] MEDS: FLUTICASONE/VILANTEROL 1 EACH BLST.W.DEV IH SCH (08:32)
[2018-04-16] MEDS: predniSONE 10 MG TABLET PO SCH (08:32)
[2018-04-16] MEDS: cetrizine 10 MG TABLET PO SCH (08:33)
[2018-04-16] MEDS: ENALAPRIL MALEATE (5 MG) 5 MG TABLET PO SCH ×2 (08:33→16:57)
[2018-04-16] MEDS: DOCUSATE SODIUM 100 MG CAPSULE PO SCH ×2 (08:34→16:58)
[2018-04-16] MEDS: PANTOPRAZOLE 40 MG TABLET.DR PO SCH ×2 (08:35→21:49)
--- NOTE | 2018-04-16 10:00 | NUR ---
RN NOTE: 8316 THE ASSIGNED CASKET INSPECTOR WAS DOING AM CARE TO THE PATIENT AND WAS TURNING THE PATIENT TO HIS RIGHT SIDE. THE CASKET INSPECTOR ACCIDENTALLY NOTED A SKIN TEAR ON THE (L) LOWER LEG AND SHE REPORTED IT TO THE ASSIGNED RN. THE ASSIGNED RN WENT INTO THE ROOM AND ASSESSED THE PATIENT AND THE (L) LOWER LEG SKIN TEAR. PATIENT DENIED PAIN. (L) LOWER LEG SKIN TEAR WAS NOTED MEASURING 9.0 X 0.1 CM NOTED WITH SEROUS FLUID COMING OUT AND MINIMAL BLEEDING. RN CALLED AND PAGED KEE DUMONT NP AND DOREEN (WOUND CARE NURSE). PATIENT'S SKIN TEAR ON THE (L) LEG WAS CLEANSED WITH NS. PAT DRY. APPLIED XEROFORM AND COVERED WITH ABDOMINAL PAD AND WRAPPED WITH KERLIX. PATIENT TOLERATED IT WELL. VOCATIONAL EDUCATION PROFESSIONAL NURSE WAS AWARE OF THE SKIN TEAR ON THE (L) LOWER LEG. 0994 RECEIVED A RESPONSE FROM GERRY SWEET AND HE AGREED TO DO A WOUND CONSULT. DOREEN, WOUND NURSE CAME AND ASSESSED THE PATIENT AND SHE CALLED DR. BANUELOS (PRODUCTION LEADER) THAT SEES THE PATIENT OUTPATIENT PER PATIENT. MD WILL BE COMING ANY TIME TODAY TO SEE THE PATIENT.
--- NOTE | 2018-04-16 10:14 | NUR ---
WOUND CARE CONSULT: PT SEEN URGENTLY PER DENTAL HYGIENE INSTRUCTOR FOR LARGE SKIN TEAR TO LEFT LOWER LEG. SKIN TEAR MEASURES 9CM X 0.1CM X UTD (NOT PROBED) DUE TO EDEMA AND CONCERN FOR BLEEDING. WOUND CLEANSED WITH NS, XEROFORM DSG APPLIED, COVERED WITH ABD PAD AND GENTLY SECURED WITH KERLIX BY RN. PT'S DIESEL DINKEY ENGINEER DR BANUELOS PAGED TO SEE PT. WILL SEE PRN.
[2018-04-16 12:00] VITALS: BP 119/58
[2018-04-16] MEDS: LEVOFLOXACIN 500 MG /D5W 100ML 500 MG in PREMIX 1 EA IV SCH (13:38)
[2018-04-16] MEDS: SOD FERRIC GLUC 125 MG in IV NS 0.9% 100 ML IV SCH (15:18)
[2018-04-16 16:00] VITALS: BP 127/54
--- NOTE | 2018-04-16 17:14 | NUR ---
RN NOTE: RECEIVED AN ORDER FROM KEE DUMONT NP RE: THE STANDBY 1 UNIT PRBC FOR THE PATIENT FOR TOMORROW. ORDER, NOTED AND CARRIED OUT. PATIENT MADE AWARE.
--- NOTE | 2018-04-16 19:30 | NUR ---
RN CLOSING NOTES GAVE REPORT TO ESTATE ATTORNEY RN. PT IS RESTING. GAVE PT NORCO JUST BEFORE ONCOMING SHIFT ARRIVED. PT IS AWAKE AND ALERT. PT STATES THAT HE HAS NO DIFFICULTLY BREATHING AT PRESENT MOMENT. PT IS ON 2 L O2 VIA NC SAT AT 98%. PT HAS A 20 GAUGE ON L FOREARM. NIGHT RN RECEIVED REPORT AND ACKNOWLEDGE PT WILL BE NPO AFTER MIDNIGHT FOR PROCEDURE. CONSENT WAS SIGNED.
[2018-04-16 20:00] VITALS: BP 122/61
--- NOTE | 2018-04-16 20:00 | NUR ---
GUY RN NOTES RECEIVED PT IN BED A/A&OX4. NOT ON ANY FORM OF DISTRESS. WITH NASAL CANNULA O2 ON 2LPM, SATING > 95%, IV LINE IN PLACE AND INTACT. PATIENT HAS LEFT THIGH HEMATOMA, DISCOLORATION OF BLE AND SWELLING OF THE SCROTUM. HOB ELEVATED. ENCOURAGE TO CALL FOR SAFETY. SAFETY MEASURES OBSERVED AND MAINTAINED. BED LOCKED AND IN LOWEST POSITION. CALL LIGHT WITHIN REACH. WILL CONT TO MONITOR PATIENT CLOSELY.
[2018-04-16] MEDS: ATORVASTATIN 10 MG TABLET PO SCH (21:48)
[2018-04-16] MEDS: SENNOSIDES 8.6 MG TABLET PO SCH (21:49)
[2018-04-16] MEDS: MONTELUKAST SODIUM (10MG) 10 MG TABLET PO SCH (21:49)
[2018-04-17] MEDS: HYDROCODONE/APAP 5/325MG 1 EACH TABLET PO PRN ×3 (00:39→21:11)
[2018-04-17] MEDS: IPRATROPIUM NEB FS 0.5 MG/2.5 ML AMPUL.NEB NEB SCH ×6 (03:21→23:23)
[2018-04-17] MEDS: ALBUTEROL FS 2.5 MG/3 ML VIAL.NEB NEB SCH ×6 (03:21→23:23)
[2018-04-17 04:00] VITALS: BP 124/55
--- NOTE | 2018-04-17 06:42 | NUR ---
GUY RN NOTES PATIENT IS IN BED A/A&OX4. NOT ON ANY FORM OF DISTRESS. WITH NASAL CANNULA O2 ON 2LPM, SATING > 95%, IV LINE IN PLACE AND INTACT. PATIENT HAS LEFT THIGH HEMATOMA, DISCOLORATION OF BLE AND SWELLING OF THE SCROTUM. HOB ELEVATED. ENCOURAGED TO CALL FOR SAFETY. SAFETY MEASURES OBSERVED AND MAINTAINED. PATIENT WAS NPO SINCE MIDNIGHT. WOUND CARE PROVIDED.BED LOCKED AND IN LOWEST POSITION. CALL LIGHT WITHIN REACH. WILL ENDORSE PATIENT CARE TO AM RN FOR ASSISTED LIVING HOME DIRECTOR..
--- NOTE | 2018-04-17 07:30 | NUR ---
RN AM SHIFT NOTE PATIENT IN BED ALERT X4. IV PATENT AND INTACT. NPO STATUS REMAINS, DISCUSSED PROCEDURE WITH PATIENT HE IS AWARE OF PROCEDURE TODAY. HOLD ALL PO MEDICATIONS PER MD ORDERS. NO LABS DONE FOR TODAY. BLOOD BANK CALLED BLOOD IS READY FOR TRANSFUSION, PRECAUTIONARY MEASURE PRIOR TO SURGERY. VITAL SIGNS STABLE WNL . CONTINUE TO MONITOR.
[2018-04-17 08:00] VITALS: BP 130/80
[2018-04-17] MEDS: ENSURE ENLIVE 237 ML LIQUID (VANILLA) PO SCH ×3 (08:00→17:43)
[2018-04-17] MEDS: DOCUSATE SODIUM 100 MG CAPSULE PO SCH ×2 (09:00→17:42)
[2018-04-17] MEDS: PANTOPRAZOLE 40 MG TABLET.DR PO SCH ×2 (09:00→21:10)
[2018-04-17] MEDS: predniSONE 10 MG TABLET PO SCH (09:00)
[2018-04-17] MEDS: ENALAPRIL MALEATE (5 MG) 5 MG TABLET PO SCH ×2 (09:00→17:43)
[2018-04-17] MEDS: cetrizine 10 MG TABLET PO SCH (09:00)
--- NOTE | 2018-04-17 09:58 | NUR ---
RN NOTE PATIENT CLEAN AND DRY, LINENS CHANGED WITH HAMMER SMITH PRIOR TO TRANSPORT TO XRAY. WILL CONTINUE TO MONITOR.
[2018-04-17] MEDS: FLUTICASONE/VILANTEROL 1 EACH BLST.W.DEV IH SCH (10:20)
--- NOTE | 2018-04-17 10:27 | NUR ---
RN NOTE PATIENT RETURNED FROM SURGERY IN BED, SAFETY MEASURES IN PLACE. CONT TO MONITOR.
[2018-04-17] MEDS ORDERED: BUPIVACAINE MPF 0.5% W/EPI INJ 30 ML VIAL ONE (11:37)
[2018-04-17] MEDS ORDERED: ANESTHESIA TRAY IN PYXIS 1 EA TRAY MC ONE (11:37)
[2018-04-17] MEDS ORDERED: LIDOCAINE HCL/PF 1% 30 ML SDV ONE (11:37)
[2018-04-17] MEDS ORDERED: BACITRACIN 50000 UNITS/VIAL ONE (11:37)
[2018-04-17 12:00] VITALS: BP 130/80
[2018-04-17] MEDS ORDERED: KETAMINE HCL (500MG/10ML) 50 MG/ML VIAL ONE (12:07)
--- NOTE | 2018-04-17 12:09 | NUR ---
RN NOTE PATIENT TAKEN TO SURGERY, NO VITALS TO RECORD
[2018-04-17] MEDS: SOD FERRIC GLUC 125 MG in IV NS 0.9% 100 ML IV SCH (14:47)
[2018-04-17 16:00] VITALS: BP 124/48
[2018-04-17] MEDS: LEVOFLOXACIN 500 MG /D5W 100ML 500 MG in PREMIX 1 EA IV SCH (17:42)
--- NOTE | 2018-04-17 19:07 | NUR ---
RN CLOSING NOTE PATIENT TOLERATED SURGERY WELL. IN BED ATE 100 DINNER. IV PATENT AND INTACT. PEDAL PULSES PRESENT BILATERALLY, RANGE OF MOTION PRESENT AT LIMB, NO DRAIINAGE AT SITE, VITALS WNL LIMITS. CONTINUE TO MONITOR PATIENT.
--- NOTE | 2018-04-17 19:51 | NUR ---
RN NOTE DR WELSH TO DO BONE MARROW BIOPSY TOMORROW 04/18 AM. ENDORSED TO EYELET MAKER. HOLD BLOOD THINNNERS, GET CONSENT FROM PATIENT. CONTINUE TO MONITOR.
[2018-04-17 20:00] VITALS: BP 134/61
[2018-04-17] MEDS ORDERED: LIDOCAINE 1% INJ 50 ML MDV IJ ONE (20:00)
--- NOTE | 2018-04-17 20:15 | NUR ---
MS/RN INITIAL NOTES RECEIVED PT IN BED, A/O X4. ON 2L O2 VIA NC, NO SOB NOTED. S/P WOUND DEBRIDEMENT ON LEFT LOWER LEG. C/D/I. POSITIVE PEDAL PULSE ON LLE. DR WELSH AT BEDSIDE. NO C/O PAIN AT THIS TIME. LFA G20 HEPLOCK INTACT AND PATENT. HOB ELEVATED. SAFETY MEASURES IN PLACED. CALL LIGHT WITHIN EASY REACH. WILL CONT TO MONITOR
[2018-04-17] MEDS: ATORVASTATIN 10 MG TABLET PO SCH (21:10)
[2018-04-17] MEDS: MONTELUKAST SODIUM (10MG) 10 MG TABLET PO SCH (21:11)
[2018-04-17] MEDS: SENNOSIDES 8.6 MG TABLET PO SCH (21:11)
[2018-04-18] MEDS: ALBUTEROL FS 2.5 MG/3 ML VIAL.NEB NEB SCH ×6 (03:06→23:18)
[2018-04-18] MEDS: IPRATROPIUM NEB FS 0.5 MG/2.5 ML AMPUL.NEB NEB SCH ×6 (03:06→23:18)
[2018-04-18 04:00] VITALS: BP 138/70
[2018-04-18] MEDS: HYDROCODONE/APAP 5/325MG 1 EACH TABLET PO PRN ×2 (05:47→09:49)
--- NOTE | 2018-04-18 06:53 | NUR ---
RN NOTES PT IN STABLE CONDITION. NO ACUTE CHANGES THROUGHOUT SHIFT. ALL NEEDS ANTICIPATED. SAFETY MEASURES OBSERVED AT ALL TIMES. ENDORSED TO AM SHIFT RN FOR EDUARDO
--- NOTE | 2018-04-18 07:00 | NUR ---
MS RN INITIAL NOTES RECEIVED PT IN BED, A/O X4. ON 2L O2 VIA NC, NO SOB NOTED. S/P WOUND DEBRIDEMENT ON LEFT LOWER LEG. C/D/I. POSITIVE PEDAL PULSE ON LLE. . LFA G20 HEPLOCK INTACT AND PATENT. HOB ELEVATED. SAFETY MEASURES IN PLACED. CALL LIGHT WITHIN REACH. WILL CONT TO MONITOR
[2018-04-18 07:12] LABS: BASOPHILS % (AUTO) 0.1 % (0.0-2.0); HEMATOCRIT 24 % (39-51); LYMPHOCYTES # (AUTO) 0.8 /CMM (0.8-4.8); LYMPHOCYTES % (AUTO) 8.6 % (20.0-44.0); MEAN CORPUSCULAR HGB CONC 34 g/dl (31.0-36.0); MEAN CORPUSCULAR VOLUME 91 fL (80-96); MONOCYTES % (AUTO) 10.9 % (2.0-12.0); NEUTROPHILS # (AUTO) 7.4 /CMM (1.8-8.9); NEUTROPHILS % (AUTO) 80.4 % (43.0-81.0); PLATELET COUNT (AUTO) 313 /CMM (150-450); RED BLOOD CELL COUNT(AUTO) 2.59 MIL/uL (4.5-6.0); WHITE BLOOD COUNT (AUTO) 9.2 K/uL (4.3-11.0)
[2018-04-18 07:52] LABS: ALANINE AMINOTRANSFERASE 28 U/L (12-78); ALBUMIN 2.2 g/dL (3.4-5.0); ALKALINE PHOSPHATASE 78 U/L (46-116); ASPARTATE AMINOTRANSFERASE 26 U/L (15-37); BILIRUBIN,TOTAL 0.7 mg/dL (0.2-1.0); CALCIUM, SERUM 8.7 mg/dL (8.5-10.1); CARBON DIOXIDE 30 mmol/L (21-32); CHLORIDE 103 mmol/L (98-107); CREATININE 0.7 mg/dL (0.6-1.3); GLUCOSE 97 mg/dL (74-106); SODIUM SERUM 139 mmol/L (136-145); TOTAL PROTEIN, SERUM 5.7 g/dL (6.4-8.2); UREA NITROGEN, BLOOD 22 mg/dL (7-18)
[2018-04-18 08:00] VITALS: BP 131/75
[2018-04-18] MEDS: ENSURE ENLIVE 237 ML LIQUID (VANILLA) PO SCH ×3 (09:47→18:11)
[2018-04-18] MEDS: predniSONE 10 MG TABLET PO SCH (09:48)
[2018-04-18] MEDS: DOCUSATE SODIUM 100 MG CAPSULE PO SCH ×2 (09:48→16:43)
[2018-04-18] MEDS: PANTOPRAZOLE 40 MG TABLET.DR PO SCH ×2 (09:48→21:43)
[2018-04-18] MEDS: ENALAPRIL MALEATE (5 MG) 5 MG TABLET PO SCH ×2 (09:49→16:43)
[2018-04-18] MEDS: cetrizine 10 MG TABLET PO SCH (09:49)
[2018-04-18] MEDS: FLUTICASONE/VILANTEROL 1 EACH BLST.W.DEV IH SCH (09:50)
[2018-04-18 10:46] LABS: BAND % (MANUAL) 1 % (0.0-5.0); LYMPHOCYTES % (MANUAL) 9 % (16-48); MONOCYTES % (MANUAL) 4 % (0-11.0); NEUTROPHILS % (MANUAL) 86 (42-76)
[2018-04-18] MEDS: SOD FERRIC GLUC 125 MG in IV NS 0.9% 100 ML IV SCH (14:49)
[2018-04-18 16:00] VITALS: BP 128/61
[2018-04-18] MEDS: LEVOFLOXACIN 500 MG /D5W 100ML 500 MG in PREMIX 1 EA IV SCH (16:41)
--- NOTE | 2018-04-18 19:03 | NUR ---
MS RN CLOSING NOTES PT IN BED, FAMILY AT BEDSIDE. ON 2L NC. NO S/SX OF RESP DISTRESS. DRESSING ON L LEG INTACT/CLEAN/DRY. NO C/O PAIN AT THIS TIME. BED IN LOCKED/LOWEST POSITION. CALL LIGHT IN REACH. ENDORSED TO PM SHIFT FOR EDUARDO.
[2018-04-18 20:00] VITALS: BP 129/64
[2018-04-18] MEDS: MONTELUKAST SODIUM (10MG) 10 MG TABLET PO SCH (21:43)
[2018-04-18] MEDS: SENNOSIDES 8.6 MG TABLET PO SCH (21:43)
[2018-04-18] MEDS: ATORVASTATIN 10 MG TABLET PO SCH (21:44)
[2018-04-19] MEDS: IPRATROPIUM NEB FS 0.5 MG/2.5 ML AMPUL.NEB NEB SCH ×6 (03:37→23:14)
[2018-04-19] MEDS: ALBUTEROL FS 2.5 MG/3 ML VIAL.NEB NEB SCH ×6 (03:38→23:14)
[2018-04-19 04:00] VITALS: BP 123/62
--- NOTE | 2018-04-19 06:45 | NUR ---
MS RN CLOSING NOTES ENDORSED PT IN BED, A/O X4. ON 2L O2 VIA NC, NO SOB NOTED. S/P WOUND DEBRIDEMENT ON LEFT LOWER LEG. C/D/I. POSITIVE PEDAL PULSE ON LLE. . LFA G20 HEPLOCK INTACT AND PATENT. POSSIBLE BONE MARROW BIOPSY PER DR WELSH ENDORSED BY AM RN, PT HOB ELEVATED. SAFETY MEASURES IN PLACED. CALL LIGHT WITHIN REACH. WILL CONT TO MONITOR, WILL ENDORE TO AM RN TO F/U.
[2018-04-19 08:00] VITALS: BP_SYST 140; BP_SYST 147; BP_DIAS 72; BP_DIAS 85
[2018-04-19] MEDS: ENSURE ENLIVE 237 ML LIQUID (VANILLA) PO SCH ×3 (08:55→17:20)
[2018-04-19] MEDS: PANTOPRAZOLE 40 MG TABLET.DR PO SCH ×2 (09:00→21:43)
[2018-04-19] MEDS: DOCUSATE SODIUM 100 MG CAPSULE PO SCH ×2 (09:00→17:20)
[2018-04-19] MEDS: FLUTICASONE/VILANTEROL 1 EACH BLST.W.DEV IH SCH (09:00)
[2018-04-19] MEDS: ENALAPRIL MALEATE (5 MG) 5 MG TABLET PO SCH ×2 (09:00→17:20)
[2018-04-19] MEDS: cetrizine 10 MG TABLET PO SCH (09:00)
[2018-04-19] MEDS: predniSONE 10 MG TABLET PO SCH (09:02)
[2018-04-19] MEDS: HYDROCODONE/APAP 5/325MG 1 EACH TABLET PO PRN (09:09)
[2018-04-19 12:00] VITALS: BP 131/61
[2018-04-19] MEDS ORDERED: NA PHOS,M-B/NA PHOS,DI-BA 1 EA ENEMA RC ONE (14:30)
[2018-04-19] MEDS: LEVOFLOXACIN 500 MG /D5W 100ML 500 MG in PREMIX 1 EA IV SCH (14:52)
[2018-04-19 16:00] VITALS: BP 121/64
[2018-04-19] MEDS ORDERED: MORPHINE SULFATE INJ 2 MG/ML DISP.SYRIN IV STA (18:36)
--- NOTE | 2018-04-19 19:00 | NUR ---
RN NOTE: DR. WELSH PRESENT AT THE BEDSIDE AND WAS DOING THE BONE MARROW BIOPSY. ASSISTED THE DOCTOR DURING THE PROCEDURE. PATIENT TOLERATED IT WELL. MORPHINE 1 MG IV X [address] WELSH'S ORDER TO PRE-MEDICATE THE PATIENT PRIOR TO THE BONE MARROW PROCEDURE.
--- NOTE | 2018-04-19 19:35 | NUR ---
RN NOTE: PATIENT ON STABLE CONDITION AND WAS ABLE TO HAVE A BOWEL MOVEMENT TODAY AFTER ADMINISTRATION OF FLEET ENEMA. REPORT GIVEN TO PM SHIFT NURSE FOR CONTINUITY OF CARE.
[2018-04-19 19:46] LABS: BASOPHILS % (AUTO) 0.2 % (0.0-2.0); HEMATOCRIT 25 % (39-51); HEMOGLOBIN 8.2 g/dL (13.5-17.5); LYMPHOCYTES # (AUTO) 0.5 /CMM (0.8-4.8); LYMPHOCYTES % (AUTO) 5.9 % (20.0-44.0); MEAN CORPUSCULAR HGB CONC 33 g/dl (31.0-36.0); MEAN CORPUSCULAR VOLUME 93 fL (80-96); MONOCYTES # (AUTO) 0.9 /CMM (0.1-1.30); MONOCYTES % (AUTO) 9.9 % (2.0-12.0); NEUTROPHILS # (AUTO) 7.8 /CMM (1.8-8.9); PLATELET COUNT (AUTO) 339 /CMM (150-450); RED BLOOD CELL COUNT(AUTO) 2.72 MIL/uL (4.5-6.0); WHITE BLOOD COUNT (AUTO) 9.3 K/uL (4.3-11.0)
[2018-04-19 20:00] VITALS: BP 129/65
--- NOTE | 2018-04-19 20:00 | NUR ---
MS1 RN NOTES RECEIVED LAYING COMFORTABLY ON BED,S/P BONE MARROW BIOPSY BY CLARI FIELDS PAIN AT THE MOMENT EDEMA NOTED ON LEFT LEG ELEVATED ON PILLOWS.WITH SALINE LOCK RIGHT HAND INTACT AND PATENT..WILL CONTINUE TO MONITOR STATUS.
[2018-04-19 21:15] LABS: BAND % (MANUAL) 2 % (0.0-5.0); LYMPHOCYTES % (MANUAL) 10 % (16-48); MONOCYTES % (MANUAL) 7 % (0-11.0); NEUTROPHILS % (MANUAL) 81 (42-76)
[2018-04-19] MEDS: MONTELUKAST SODIUM (10MG) 10 MG TABLET PO SCH (21:44)
[2018-04-19] MEDS: SENNOSIDES 8.6 MG TABLET PO SCH (21:44)
[2018-04-19] MEDS: ATORVASTATIN 10 MG TABLET PO SCH (21:44)
[2018-04-20] MEDS: ALBUTEROL FS 2.5 MG/3 ML VIAL.NEB NEB SCH ×4 (03:17→14:49)
[2018-04-20] MEDS: IPRATROPIUM NEB FS 0.5 MG/2.5 ML AMPUL.NEB NEB SCH ×4 (03:17→14:49)
[2018-04-20 04:00] VITALS: BP 108/65
[2018-04-20] MEDS: HYDROCODONE/APAP 5/325MG 1 EACH TABLET PO PRN ×2 (04:21→13:22)
--- NOTE | 2018-04-20 04:21 | NUR ---
MS1 RN NOTES PAIN MANAGEMENT C/O LEFT LEG PAIN 6/10 ON PAIN SCALE,NORCO 5/325MG,1 TAB PO GIVEN FOR MODERATE PAIN
--- NOTE | 2018-04-20 07:25 | NUR ---
MS1 RN NOTES SLEPT WELL AT NIGHT,PAIN MANAGEMENT EFFECTIVE.KEPT LEFT LEG ELEVATED ON PILLOW,DRESSING INTACT AND DRY.WILL ENDORSE TO DAY NURSE FOR EDUARDO.
[2018-04-20 08:00] VITALS: BP 114/57
--- NOTE | 2018-04-20 08:00 | NUR ---
MS RN NOTES PT IN BED, A/O X4. ON 2L O2 VIA NC, NO SOB NOTED. S/P WOUND DEBRIDEMENT ON LEFT LOWER LEG. C/D/I. POSITIVE PEDAL PULSE ON LLE. . LFA G20 HEPLOCK INTACT AND PATENT. POSSIBLE BONE MARROW BIOPSY PER DR WELSH ENDORSED BY AM RN, PT HOB ELEVATED. SAFETY MEASURES IN PLACED. CALL LIGHT WITHIN REACH. WILL CONT TO MONITOR, WILL MONITOR CLOSELY . NO SOB NOTED,ABLE TO EAT SELF WELL ,
[2018-04-20] MEDS: cetrizine 10 MG TABLET PO SCH (08:15)
[2018-04-20] MEDS: DOCUSATE SODIUM 100 MG CAPSULE PO SCH ×2 (08:15→16:26)
[2018-04-20] MEDS: predniSONE 10 MG TABLET PO SCH (08:16)
[2018-04-20] MEDS: PANTOPRAZOLE 40 MG TABLET.DR PO SCH (08:16)
[2018-04-20] MEDS: ENALAPRIL MALEATE (5 MG) 5 MG TABLET PO SCH ×2 (08:18→16:26)
[2018-04-20] MEDS: FLUTICASONE/VILANTEROL 1 EACH BLST.W.DEV IH SCH (08:18)
[2018-04-20] MEDS: ENSURE ENLIVE 237 ML LIQUID (VANILLA) PO SCH ×3 (08:19→17:21)
[2018-04-20 10:00] VITALS: BP 114/57
--- NOTE | 2018-04-20 11:29 | NUR ---
MILLROOM SUPERVISOR NOTE DR LEMON AT BEDSIDE AWARE EF 27% ALSO,CALLED DUMP ATTENDANT AND AWARE THAT TROPONIN 0.184 WILL F\U Addendum: 04/20/18 at 1141 by SHANNON PORRAS RN WRONG CHART WRONG PATIENT
--- NOTE | 2018-04-20 12:30 | NUR ---
LOCK TENDER CHIEF OPERATOR NOTE KEE TELLES AUTOMOTIVE TIRE TECHNICIAN AT BEDSIDE WITH ORDER TO D\C PATIENT TO SNF, WILL COORDINATE WITH INSPECTOR HEATING AND REFRIGERATION
[2018-04-20] MEDS: LEVOFLOXACIN 500 MG /D5W 100ML 500 MG in PREMIX 1 EA IV SCH (13:03)
[2018-04-20] MEDS ORDERED: SENN-168 PO (14:16)
[2018-04-20] MEDS ORDERED: LEVO500T90 PO (14:16)
[2018-04-20] MEDS ORDERED: DOCU-141 PO (14:16)
[2018-04-20] MEDS ORDERED: LACT-246 PO (14:16)
--- NOTE | 2018-04-20 15:01 | NUR ---
MS RN NOTE ON BREATHING TX BY RT
--- NOTE | 2018-04-20 15:49 | NUR ---
MS RN NOTE CALLED TO SNF SPOKE WITH NATALIO TELLES ,REPORT GIVEN
[2018-04-20 16:00] VITALS: BP 123/53
--- NOTE | 2018-04-20 16:17 | NUR ---
MS RN NOTE SPOKE WITH SON AWARE THAT PATIENT WILL BE DISCHARGE TO SNF
[2018-04-20 16:26] VITALS: BP 123/53
[2018-04-20 18:11] LABS: BETA-2 MICROGLOBULIN, SERUM 1.8 mg/L (0.6-2.4)
--- NOTE | 2018-04-20 18:50 | NUR ---
MS ELFE[facility] NOTE AMBULANCE ARRIVED ,REPORT GIVEN, HL REMOVED ,DRY DRESSING APPLIED, NO BLEEDING NOTED, SON AT BESIDE , TAKEN TO [facility] WITH STABLE CONDITION Addendum: 04/20/18 at 1853 by SHANNON PORRAS RN BELONGING SIGNED
== END 2018-04-20 18:53 | DRG 570 ==
LOC: ER 18:37 → TELE-TD 23:58 → TELE1 04-12 10:15 → MEDSG1 04-14 10:13
PROVIDERS: ADMIT Hospitalist; ATTEND Hospitalist
PROC: 30233N1 Transfusion of Nonautologous Red Blood Cells into Peripheral Vein, Percutaneous Approach (ICD-10-PCS; 2018-04-14)
PROC: 0JBP0ZZ Excision of Left Lower Leg Subcutaneous Tissue and Fascia, Open Approach (ICD-10-PCS; principal; 2018-04-17)
PROC: 07DR3ZX Extraction of Iliac Bone Marrow, Percutaneous Approach, Diagnostic (ICD-10-PCS; 2018-04-19)
DX: S70.12XA Contusion of left thigh, initial encounter (principal); N17.0 Acute kidney failure with tubular necrosis; D62 Acute posthemorrhagic anemia; E44.0 Moderate protein-calorie malnutrition; D68.59 Other primary thrombophilia; J98.11 Atelectasis; I50.32 Chronic diastolic (congestive) heart failure; J44.9 Chronic obstructive pulmonary disease, unspecified; I48.91 Unspecified atrial fibrillation; I25.10 Atherosclerotic heart disease of native coronary artery without angina pectoris; Z91.14 Patient's other noncompliance with medication regimen; I11.0 Hypertensive heart disease with heart failure; Z99.81 Dependence on supplemental oxygen; Z96.652 Presence of left artificial knee joint; Z92.3 Personal history of irradiation; Z90.49 Acquired absence of other specified parts of digestive tract; Z87.891 Personal history of nicotine dependence; Z86.718 Personal history of other venous thrombosis and embolism; Z85.038 Personal history of other malignant neoplasm of large intestine; Z83.3 Family history of diabetes mellitus; Z82.49 Family history of ischemic heart disease and other diseases of the circulatory system; Z82.3 Family history of stroke; Z79.51 Long term (current) use of inhaled steroids; Z68.33 Body mass index [BMI] 33.0-33.9, adult; Z79.01 Long term (current) use of anticoagulants; K59.00 Constipation, unspecified; E78.5 Hyperlipidemia, unspecified; E66.9 Obesity, unspecified; M19.90 Unspecified osteoarthritis, unspecified site; D63.8 Anemia in other chronic diseases classified elsewhere; E11.42 Type 2 diabetes mellitus with diabetic polyneuropathy; M85.9 Disorder of bone density and structure, unspecified; N50.89 Other specified disorders of the male genital organs; L30.4 Erythema intertrigo; N45.1 Epididymitis; N43.3 Hydrocele, unspecified; D47.2 Monoclonal gammopathy; K80.20 Calculus of gallbladder without cholecystitis without obstruction; S81.812A Laceration without foreign body, left lower leg, initial encounter; X58.XXXA Exposure to other specified factors, initial encounter; Y92.009 Unspecified place in unspecified non-institutional (private) residence as the place of occurrence of the external cause
CPT/HCPCS: 36415; 71045-TC; 75635-TC; 76870-TC; 77075-TC; 80048-TC; 80053-TC; 80061-TC; 80076-TC; 82232; 82378; 82550-TC; 82728-TC; 82784; 83540-TC; 83605-TC; 83735-TC; 83880; 84100-TC; 84155; 84165; 84484-TC; 85025-TC; 85610-TC; 85730-TC; 86334; 86850-TC; 86921-TC; 87040-TC; 87070-TC; 87081-TC; 93307-TC; 93971-TC; 94799-TC; 97110-TC; 97116-TC; 97530-TC; A4216; A6253; A6402; C9113; G0378; J1956; J2270; J2916; J3430; J3490; J7030; J7050; P9016-BL; Q9967

== ENCOUNTER 2018-05-07 12:37 | Outpatient (CLI) | payer MEDICARE, BC ==
[~2018-05-07 12:37] MED LIST changes: +FURO-144 PO; +LACT-246 PO; +LEVO500T90 PO; -WARF10TA22 PO; -WARF7.5T23 PO
== END 2018-05-07 23:59 | disposition home or self-care (01) ==
LOC: WOU 12:37
PROVIDERS: ATTEND Podiatrist Foot & Ankle Surgery
DX: I87.2 Venous insufficiency (chronic) (peripheral) (principal); L97.828 Non-pressure chronic ulcer of other part of left lower leg with other specified severity; L90.9 Atrophic disorder of skin, unspecified; R60.0 Localized edema; J44.9 Chronic obstructive pulmonary disease, unspecified; Z99.81 Dependence on supplemental oxygen; Z79.52 Long term (current) use of systemic steroids; I48.91 Unspecified atrial fibrillation; Z95.0 Presence of cardiac pacemaker; Z96.652 Presence of left artificial knee joint; Z85.038 Personal history of other malignant neoplasm of large intestine
CPT/HCPCS: A6402; G0463

== ENCOUNTER 2018-05-14 12:53 | Outpatient (CLI) | payer MEDICARE, BC | END 2018-05-14 23:59 | LOC: WOU 12:53 | PROVIDERS: ATTEND Podiatrist Foot & Ankle Surgery | DX: I87.312 Chronic venous hypertension (idiopathic) with ulcer of left lower extremity (principal); L97.828 Non-pressure chronic ulcer of other part of left lower leg with other specified severity | CPT/HCPCS: A6402; G0463 ==

== ENCOUNTER 2018-05-23 12:40 | Outpatient (CLI) | payer MEDICARE, BC | END 2018-05-23 23:59 | disposition home or self-care (01) | LOC: WOU 12:40 | PROVIDERS: ATTEND Podiatrist Foot & Ankle Surgery | DX: I87.303 Chronic venous hypertension (idiopathic) without complications of bilateral lower extremity (principal); L90.9 Atrophic disorder of skin, unspecified; B35.1 Tinea unguium; Z85.9 Personal history of malignant neoplasm, unspecified; I48.91 Unspecified atrial fibrillation; Z79.01 Long term (current) use of anticoagulants; Z99.81 Dependence on supplemental oxygen | CPT/HCPCS: G0463 ==

== ENCOUNTER 2018-08-13 11:10 | Inpatient (IN) | payer MEDICARE, BC ==
[~2018-08-13] VITALS: Ht 177.8 cm; Wt 85.7 kg
[2018-08-13] MEDS ORDERED: IV NS 0.9% 500 ML BAG IV ONE (12:00)
--- NOTE | 2018-08-13 12:02 | NUR ---
RADIOLOGY AT BEDSIDE FOR CHEST XRAY.
[2018-08-13 12:10] LABS: BASOPHILS % (AUTO) 0.1 % (0.0-2.0); HEMATOCRIT 33 % (39-51); HEMOGLOBIN 10.9 g/dL (13.5-17.5); LYMPHOCYTES # (AUTO) 0.6 /CMM (0.8-4.8); LYMPHOCYTES % (AUTO) 7.3 % (20.0-44.0); MEAN CORPUSCULAR HGB CONC 34 g/dl (31.0-36.0); MEAN CORPUSCULAR VOLUME 89 fL (80-96); MONOCYTES # (AUTO) 0.8 /CMM (0.1-1.30); MONOCYTES % (AUTO) 9.3 % (2.0-12.0); NEUTROPHILS # (AUTO) 7.4 /CMM (1.8-8.9); NEUTROPHILS % (AUTO) 83.3 % (43.0-81.0); PLATELET COUNT (AUTO) 329 /CMM (150-450); RED BLOOD CELL COUNT(AUTO) 3.66 MIL/uL (4.5-6.0); WHITE BLOOD COUNT (AUTO) 8.9 K/uL (4.3-11.0)
[2018-08-13 12:16] LABS: CALCIUM, SERUM 9.2 mg/dL (8.5-10.1); CARBON DIOXIDE 25 mmol/L (21-32); CHLORIDE 101 mmol/L (98-107); CREATININE 0.9 mg/dL (0.6-1.3); GLUCOSE 119 mg/dL (74-106); POTASSIUM 4.8 mmol/L (3.5-5.1); SODIUM SERUM 133 mmol/L (136-145); UREA NITROGEN, BLOOD 14 mg/dL (7-18)
--- NOTE | 2018-08-13 12:18 | NUR ---
MED SURGE BED 314-1, TURNED IN MOVE SHEET. WAITING FOR DR WYATT TO GIVE OK TO [facility].
[2018-08-13 12:30] LABS: ALANINE AMINOTRANSFERASE 15 U/L (12-78); ALBUMIN 2.7 g/dL (3.4-5.0); ALKALINE PHOSPHATASE 87 U/L (46-116); ASPARTATE AMINOTRANSFERASE 16 U/L (15-37); BILIRUBIN,DIRECT 0.2 mg/dL (0.0-0.2); BILIRUBIN,TOTAL 0.5 mg/dL (0.2-1.0); TOTAL PROTEIN, SERUM 6.5 g/dL (6.4-8.2)
[2018-08-13] MEDS ORDERED: PIPERACILLIN /TAZOBACTAM 3.375 G in IV D5W 50 ML IV ONE (12:30)
[2018-08-13] MEDS ORDERED: VANCOMYCIN 1 GM in IV D5W 250 ML IV ONE (12:30)
--- NOTE | 2018-08-13 12:57 | NUR ---
CALLED [facility], SHADE GREENBERG PAGED
[2018-08-13] MEDS ORDERED: ACET325T53 PO (13:11)
[2018-08-13] MEDS ORDERED: LIDO30AD10 TP (13:11)
[2018-08-13] MEDS ORDERED: TRAM50TA2 PO (13:11)
[2018-08-13] MEDS ORDERED: ARFO15VI IH (13:11)
[2018-08-13] MEDS ORDERED: [UNRECOGNIZED DRUG - CODE] PO (13:11)
[2018-08-13] MEDS ORDERED: BUDE0.5A4 IH (13:11)
[2018-08-13] MEDS ORDERED: CYAN100020 SL (13:11)
[2018-08-13] MEDS ORDERED: MAGN400O21 PO (13:11)
[2018-08-13] MEDS ORDERED: NA P133E RC (13:11)
[2018-08-13] MEDS ORDERED: BISA10SU11 RC (13:11)
[2018-08-13] MEDS ORDERED: MULT-213 PO (13:11)
[2018-08-13] MEDS ORDERED: HYDR-4384 PO (13:11)
[2018-08-13] MEDS ORDERED: IPRA3AMP22 IH ×2 (13:11→19:08)
--- NOTE | 2018-08-13 13:23 | NUR ---
REPORT GIVEN TO ELFE[facility] LOVE FOR CONT OF CARE.
[2018-08-13] MEDS ORDERED: ACETAMINOPHEN 325 MG TABLET PO PRN (14:00)
[2018-08-13] MEDS ORDERED: ONDANSETRON HCL/PF 4 MG/2 ML VIAL IVP PRN (14:00)
[2018-08-13] MEDS ORDERED: MAG HYDROX/AL HYDROX/SIMETH 30 ML UDC PO PRN (14:00)
[2018-08-13] MEDS ORDERED: ZOLPIDEM TARTRATE 5 MG TABLET PO PRN (14:00)
[2018-08-13] MEDS ORDERED: Z GUARD REMEDY 2 OZ OINT TP PRN (14:00)
[2018-08-13] MEDS ORDERED: MAGNESIUM HYDROXIDE 30 ML UDC PO PRN ×2 (14:00→19:30)
--- NOTE | 2018-08-13 14:10 | NUR ---
AD SETTER NOTES RECEIVED REPORT FROM TINO IN ER. PATIENT RECEIVED ON THE UNIT VIA GURNEY. PATIENT IS IN BED, BREATHING ON OXYGEN NC AT 2L. PATIENT O2 SATURATING AT >95%. VITAL SIGNS ARE STABLE. PATIENT IN NO ACUTE DISTRESS. PATIENT PLACED ON CARDIAC MONITORING. IV INTACT. PATIENT BREATHING IS EVEN AND UNLABORED. NO SOB NOTED. MD NOTIFIED AND MADE AWARE OF PATIENTS ARRIVAL. BED ALARM IS ON. BED IS LOCKED AND IN LOWEST POSITION. CALL LIGHT WITHIN REACH. WILL CONTINUE TO MONITOR.
[2018-08-13 14:25] VITALS: BP 106/60
[2018-08-13] MEDS ORDERED: FEE PK DOSING 1 MIN EA MC ONE (14:30)
[2018-08-13] MEDS: IV NS 0.9% 1,000 ML IV PRN (14:52)
[2018-08-13 16:00] VITALS: BP 106/60
[2018-08-13] MEDS: CEFTRIAXONE 2 G in IV D5W 100 ML IV SCH (18:30)
[2018-08-13] MEDS ORDERED: FLUT1BLS12 IH (19:08)
[2018-08-13] MEDS ORDERED: DICL100G16 TP (19:08)
[2018-08-13] MEDS ORDERED: SENN-168 PO (19:14)
--- NOTE | 2018-08-13 19:25 | NUR ---
SPIRAL GEAR GENERATOR CLOSING NOTES PATIENT IS LAYING IN BED, RESTING. PATIENT IS ALERT AND ORIENTED X4. PATIENT IS BREATHING ON OXYGEN NC 2L. PATIENT BREATHING IS EVEN AND UNLABORED. PATIENT FAMILY AT THE BEDSIDE. SPOKE TO DR. GREENBERG. PATIENT ORDER FOR BREATHING TREATMENTS, ENDORSED CARE TO PM SHIFT OF PLAN OF CARE. PATIENT ON CARDIAC MONITORING, V PACING. PATIENT IN NO ACUTE DISTRESS. NO SOB NOTED. PATIENT BED ALARM IS ON. PATIENT IV INTACT. ALL NURSING NEEDS MET. PATIENT KEPT CLEAN, DRY, AND COMFORTABLE. PATIENT IS IN NO PAIN AT THIS TIME. BED IS LOCKED AND IN LOWEST POSITION. CALL LIGHT WITHIN REACH. SAFETY PRECAUTIONS IN PLACE. ENDORSED CARE TO PM SHIFT FOR EDUARDO.
[2018-08-13] MEDS ORDERED: BISACODYL SUPP (10 MG) 10 MG/SUPP.RECT SUPP.RECT RC PRN (19:30)
[2018-08-13] MEDS ORDERED: TRAMADOL HCL 50 MG TABLET PO PRN (19:30)
[2018-08-13] MEDS ORDERED: NA PHOS,M-B/NA PHOS,DI-BA 1 EA ENEMA RC PRN (19:30)
[2018-08-13] MEDS ORDERED: ARFORMOTEROL TARTRATE 15 MCG IH SCH (19:30)
[2018-08-13] MEDS: ALBUTEROL FS 2.5 MG/3 ML VIAL.NEB NEB SCH ×2 (19:59→23:30)
[2018-08-13] MEDS: IPRATROPIUM NEB FS 0.5 MG/2.5 ML AMPUL.NEB NEB SCH ×2 (19:59→23:30)
[2018-08-13 20:00] VITALS: BP 103/50
[2018-08-13] MEDS: BUDESONIDE RESPULE INH 0.5 MG/2 ML AMPUL.NEB IH SCH (21:00)
[2018-08-13] MEDS: MONTELUKAST SODIUM (10MG) 10 MG TABLET PO SCH (21:12)
[2018-08-13] MEDS: CYANOCOBALAMIN 500 MCG TABLET PO SCH (21:12)
--- NOTE | 2018-08-13 22:00 | NUR ---
MS RN NOTES PT NOTED WITH PACEMAKER. CONFIRMED INFORMATION WITH SON. TYPE - [employer] MODEL - ADDR01 SERIAL - [id number] MODEL - [id number] SERIAL - [id number] MODEL - 5076-58 SERIAL - [id number] CONFIRMED WITH [employer] THAT PACEMAKER IS NOT COMPATIBLE WITH MRI.
[2018-08-14] MEDS: VANCOMYCIN 0.75 GM in IV D5W 250 ML IV SCH ×2 (01:45→13:57)
[2018-08-14] MEDS: HYDROCODONE/APAP 5/325MG 1 EACH TABLET PO PRN ×3 (01:55→16:26)
[2018-08-14] MEDS: IPRATROPIUM NEB FS 0.5 MG/2.5 ML AMPUL.NEB NEB SCH ×6 (02:47→23:36)
[2018-08-14] MEDS: ALBUTEROL FS 2.5 MG/3 ML VIAL.NEB NEB SCH ×6 (02:47→23:35)
--- NOTE | 2018-08-14 04:12 | NUR ---
MS RN NOTES RECEIVED PT IN BED AWAKE AND ABLE TO MAKE NEEDS KNOWN. PT A/O X3. RESPIRATIONS EVEN AND UNLABORED WITH NO S/S OF ACUTE DISTRESS OR SOB NOTED. PT ON 2L O2 VIA NC AND TOLERATING WELL. NO COMPLAINTS OF PAIN AT THIS TIME. PT WITH LFA #20G RUNNING NS @75ML/HR. SAFETY MEASURES IN PLACE WITH BED IN LOWEST LOCKED POSITION WITH SIDE RAILS UP X2. CALL LIGHT WITHIN REACH. WILL CONTINUE TO MONITOR.
[2018-08-14] MEDS: IV NS 0.9% 1,000 ML IV PRN (05:22)
--- NOTE | 2018-08-14 06:59 | NUR ---
MS RN NOTES PT IN BED ASLEEP BUT EASILY AWOKEN VERBALLY OR BY TOUCH. PT A/O X3 AND ABLE TO MAKE NEEDS KNOWN. RESPIRATIONS EVEN AND UNLABORED WITH NO S/S OF ACUTE DISTRESS OR SOB NOTED THROUGHOUT SHIFT. PT ON 2L O2 VIA NC AND TOLERATING WELL. NO COMPLAINTS OF PAIN AT THIS TIME. PT WITH LFA #20G RUNNING NS @75ML/HR WITH NO S/S OF REDNESS OR INFILTRATION. TURNED PT Q2 HOURS. PT KEPT CLEAN, DRY, AND COMFORTABLE. SAFETY MEASURES IN PLACE WITH BED IN LOWEST LOCKED POSITION WITH SIDE RAILS UP X2. CALL LIGHT WITHIN REACH. WILL ENDORSE TO ONCOMING NURSE FOR EDUARDO.
--- NOTE | 2018-08-14 07:40 | NUR ---
M/S RN NOTES PATIENT RESTING IN BED, NO RESPIRATORY DISTRESS NOTED, PAIN TOLERABLE AT THIS TIME OF 06/04. SKIN WARM TO TOUCH, IV ACCESS SITES INTACT AND PATENT, NO REDNESS NO INFILTRATION. BED ON LOWEST LOCKED POSITION, CALL LIGHT WITHIN REACH. WILL CONTINUE TO MONITOR.
--- NOTE | 2018-08-14 07:40 | NUR ---
M/S RN NOTES PATIENT RESTING, LYING IN BED. ALERT AND ORIENTED X3. NO RESPIRATORY DISTRESS NOTED, NO C/O PAIN AT THIS TIME. SKIN WARM TO TOUCH. IVF OF NS INFUSING AT 75ML/HR ON THE LFA #20G, INTACT AND PATENT, NO REDNESS, NO INFILTRATION. PATIENT'S NEEDS ATTENDED, BED ON LOWEST LOCKED POSITION, CALL LIGHT WITHIN REACH. WILL CONTINUE TO MONITOR.
[2018-08-14 08:00] VITALS: BP 140/69
[2018-08-14 08:22] LABS: CALCIUM, SERUM 8.9 mg/dL (8.5-10.1); CARBON DIOXIDE 23 mmol/L (21-32); CHLORIDE 101 mmol/L (98-107); CREATININE 0.7 mg/dL (0.6-1.3); GLUCOSE 86 mg/dL (74-106); MAGNESIUM 1.6 mg/dL (1.8-2.4); PHOSPHORUS 3.6 mg/dL (2.5-4.9); POTASSIUM 4.1 mmol/L (3.5-5.1); SODIUM SERUM 135 mmol/L (136-145); UREA NITROGEN, BLOOD 9 mg/dL (7-18)
[2018-08-14 08:24] LABS: BASOPHILS % (AUTO) 0.1 % (0.0-2.0); HEMATOCRIT 29 % (39-51); HEMOGLOBIN 9.9 g/dL (13.5-17.5); LYMPHOCYTES # (AUTO) 0.7 /CMM (0.8-4.8); LYMPHOCYTES % (AUTO) 12.3 % (20.0-44.0); MEAN CORPUSCULAR HGB CONC 34 g/dl (31.0-36.0); MEAN CORPUSCULAR VOLUME 88 fL (80-96); MONOCYTES # (AUTO) 0.7 /CMM (0.1-1.30); MONOCYTES % (AUTO) 12.5 % (2.0-12.0); NEUTROPHILS # (AUTO) 4.5 /CMM (1.8-8.9); NEUTROPHILS % (AUTO) 75.1 % (43.0-81.0); PLATELET COUNT (AUTO) 317 /CMM (150-450); RED BLOOD CELL COUNT(AUTO) 3.34 MIL/uL (4.5-6.0)
[2018-08-14 08:29] LABS: CHOLESTEROL 97 mg/dL (<200); HDL CHOLESTEROL 37 mg/dL (40-60); LDL 49 mg/dL (0-99); THYROID STIMULATING HORMONE 0.532 uIU/mL (0.358-3.74); TRIGLYCERIDES 61 mg/dL (30-150)
[2018-08-14] MEDS: BUDESONIDE RESPULE INH 0.5 MG/2 ML AMPUL.NEB IH SCH ×2 (09:00→21:05)
[2018-08-14] MEDS: ENSURE ENLIVE 237 ML LIQUID (VANILLA) PO SCH ×3 (09:01→18:38)
[2018-08-14] MEDS: Magnesium 1GM/D5W 100ML PREMIX 100 ML IV SCH ×2 (09:05→10:20)
[2018-08-14] MEDS: MULTIVIT W/MINERALS 1 TAB TABLET PO SCH (09:06)
[2018-08-14] MEDS: LIDOCAINE 5% (PATCH) 1 EA PATCH TP SCH (09:06)
[2018-08-14] MEDS: cetrizine 10 MG TABLET PO SCH (09:06)
[2018-08-14] MEDS: DOCUSATE SODIUM 100 MG CAPSULE PO SCH ×2 (09:06→16:24)
[2018-08-14] MEDS: ENALAPRIL MALEATE (5 MG) 5 MG TABLET PO SCH ×2 (09:07→16:25)
[2018-08-14] MEDS: FUROSEMIDE 40 MG TABLET PO SCH (09:07)
[2018-08-14] MEDS: CYANOCOBALAMIN 500 MCG TABLET PO SCH (09:07)
[2018-08-14] MEDS: ATORVASTATIN 10 MG TABLET PO SCH (09:08)
[2018-08-14] MEDS: FLUTICASONE/VILANTEROL 1 EACH BLST.W.DEV IH SCH (09:10)
[2018-08-14] MEDS: MUPIROCIN OINT 2% 22 GM TUBE TP SCH ×2 (12:27→23:54)
[2018-08-14 16:00] VITALS: BP 120/62
[2018-08-14] MEDS: CEFTRIAXONE 2 G in IV D5W 100 ML IV SCH (18:38)
[2018-08-14] MEDS: SENNOSIDES 8.6 MG TABLET PO SCH (18:39)
--- NOTE | 2018-08-14 19:30 | NUR ---
M/S RN NOTES PATIENT RESTING IN BED, NO RESPIRATORY DISTRESS NOTED, PAIN MEDICATION GIVEN FOR BLE PAIN AT 09/03. WILL ENDORSE TO ONCOMING SHIFT. SKIN WARM TO TOUCH, IV ROCEPHIN INFUSING. BED ON LOWEST LOCKED POSITION, CALL LIGHT WITHIN REACH. WILL ENDORSE TO ONCOMING SHIFT.
--- NOTE | 2018-08-14 19:58 | NUR ---
RN OPENING NOTES RECEIVED PATIENT AWAKE, RESTING COMFORTABLY IN BED. PATIENT IS ALERT AND ORIENTED X3. NO RESPIRATORY DISTRESS NOTED. DENIES SOB. DENIES PAIN OR DISCOMFORT AT THIS TIME. IV SITE INTACT AND PATENT, NO REDNESS OR INFILTRATION. SAFETY PRECAUTIONS IMPLEMENTED; CALL LIGHT WITHIN REACH, BED LOW, BED LOCKED, CALL LIGHT WITHIN REACH. WILL CONTINUE TO MONITOR PATIENT THROUGHOUT THE SHIFT.
[2018-08-14 20:00] VITALS: BP 111/52
[2018-08-14 20:05] VITALS: BP 142/95
[2018-08-14] MEDS: MONTELUKAST SODIUM (10MG) 10 MG TABLET PO SCH (21:04)
[2018-08-15] MEDS: VANCOMYCIN 0.75 GM in IV D5W 250 ML IV SCH ×2 (00:55→13:53)
[2018-08-15] MEDS: IV NS 0.9% 1,000 ML IV PRN ×2 (00:56→21:41)
[2018-08-15] MEDS: IPRATROPIUM NEB FS 0.5 MG/2.5 ML AMPUL.NEB NEB SCH ×5 (03:47→20:11)
[2018-08-15] MEDS: ALBUTEROL FS 2.5 MG/3 ML VIAL.NEB NEB SCH ×5 (03:47→20:11)
--- NOTE | 2018-08-15 06:11 | NUR ---
RN CLOSING NOTES PATIENT IS ASLEEP, RESTING COMFORTABLY IN BED. PATIENT IS EASILY AWOKEN VERBALLY OR BY TOUCH. PATIENT IS A/O X 3 AND ABLE TO MAKE NEEDS KNOWN. NO SIGNS OF RESPIRATORY DISTRESS OR SOB NOTED THROUGHOUT THE SHIFT. PATIENT ON 2L O2 VIA NC, TOLERATING WELL. THERE WERE NO COMPLAINTS OF PAIN AT THIS TIME. PATIENT WITH LFA #20G RUNNING NS @75 ML/HR WITH NO S/S OF REDNESS OR INFILTRATION. PATIENT TURNED Q2 HOURS. PATIENT KEPT CLEAN, DRY, AND COMFORTABLE. SAFETY PRECAUTIONS IMPLEMENTED; CALL LIGHT WITHIN REACH, BED LOW, BED LOCKED, SIDE RAILS UP X2. WILL ENDORSE TO AM SHIFT FOR CONTINUITY OF CARE.
[2018-08-15 07:03] LABS: HEMATOCRIT 28 % (39-51); HEMOGLOBIN 9.7 g/dL (13.5-17.5); LYMPHOCYTES # (AUTO) 0.8 /CMM (0.8-4.8); LYMPHOCYTES % (AUTO) 7.9 % (20.0-44.0); MEAN CORPUSCULAR HGB CONC 34 g/dl (31.0-36.0); MEAN CORPUSCULAR VOLUME 88 fL (80-96); MONOCYTES # (AUTO) 1.2 /CMM (0.1-1.30); MONOCYTES % (AUTO) 11.6 % (2.0-12.0); NEUTROPHILS # (AUTO) 8.2 /CMM (1.8-8.9); NEUTROPHILS % (AUTO) 80.5 % (43.0-81.0); PLATELET COUNT (AUTO) 298 /CMM (150-450); RED BLOOD CELL COUNT(AUTO) 3.24 MIL/uL (4.5-6.0); WHITE BLOOD COUNT (AUTO) 10.2 K/uL (4.3-11.0)
[2018-08-15 07:20] LABS: CALCIUM, SERUM 8.8 mg/dL (8.5-10.1); CARBON DIOXIDE 22 mmol/L (21-32); CHLORIDE 98 mmol/L (98-107); CREATININE 0.7 mg/dL (0.6-1.3); GLUCOSE 120 mg/dL (74-106); MAGNESIUM 1.7 mg/dL (1.8-2.4); SODIUM SERUM 132 mmol/L (136-145); UREA NITROGEN, BLOOD 11 mg/dL (7-18)
--- NOTE | 2018-08-15 07:25 | NUR ---
M/S RN NOTES PATIENT RESTING, LYING IN BED. NO RESPIRATORY DISTRESS, PAIN TOLERABLE AT THIS TIME. SKIN WARM TO TOUCH. IVF OF NS INFUSING AT 75ML/HR ON THE LFA #20G, INTACT AND PATENT. PATIENT'S NEEDS ATTENDED. BED ON LOWEST LOCKED POSITION, CALL LIGHT WITHIN REACH. WILL CONTINUE TO MONITOR
--- NOTE | 2018-08-15 08:05 | NUR ---
WOUND CARE CONSULT WOUND CARE RECEIVED CONSULT FOR WOUND TREATMENT. WOUND CARE WILL DEFER CONSULT AND ALL TREATMENT PLANS TO PLASTIC SURGICAL TEAM AND DPM DR OLMEDO WHO ARE ALL FOLLOWING THIS PATIENT. PATIENT WITH HAFSA AT 14, ALL PRESSURE ULCER PREVENTION MEASURES ARE NOTED TO BE IN PLACE AT THIS TIME. WILL SEE PRN.
[2018-08-15 08:09] VITALS: BP 128/67
[2018-08-15] MEDS: BUDESONIDE RESPULE INH 0.5 MG/2 ML AMPUL.NEB IH SCH ×2 (08:59→21:54)
[2018-08-15] MEDS: FLUTICASONE/VILANTEROL 1 EACH BLST.W.DEV IH SCH (09:12)
[2018-08-15] MEDS: cetrizine 10 MG TABLET PO SCH (09:13)
[2018-08-15] MEDS: DOCUSATE SODIUM 100 MG CAPSULE PO SCH ×2 (09:13→17:56)
[2018-08-15] MEDS: CYANOCOBALAMIN 500 MCG TABLET PO SCH (09:13)
[2018-08-15] MEDS: LIDOCAINE 5% (PATCH) 1 EA PATCH TP SCH (09:13)
[2018-08-15] MEDS: MULTIVIT W/MINERALS 1 TAB TABLET PO SCH (09:13)
[2018-08-15] MEDS: FUROSEMIDE 40 MG TABLET PO SCH (09:13)
[2018-08-15] MEDS: ATORVASTATIN 10 MG TABLET PO SCH (09:14)
[2018-08-15] MEDS: ENALAPRIL MALEATE (5 MG) 5 MG TABLET PO SCH ×2 (09:14→17:54)
[2018-08-15] MEDS: ENSURE ENLIVE 237 ML LIQUID (VANILLA) PO SCH ×3 (09:15→18:00)
[2018-08-15] MEDS: DAKINS QUARTER STRENGTH (0.125%) 480 ML BOTTLE TOP SCH (09:34)
[2018-08-15] MEDS: Magnesium 1GM/D5W 100ML PREMIX 100 ML IV SCH ×2 (09:36→10:40)
[2018-08-15] MEDS: MUPIROCIN OINT 2% 22 GM TUBE TP SCH ×2 (13:40→22:23)
[2018-08-15 16:00] VITALS: BP 122/66
[2018-08-15] MEDS: SENNOSIDES 8.6 MG TABLET PO SCH (17:54)
[2018-08-15] MEDS: HYDROCODONE/APAP 5/325MG 1 EACH TABLET PO PRN (17:59)
[2018-08-15] MEDS: CEFTRIAXONE 2 G in IV D5W 100 ML IV SCH (18:03)
--- NOTE | 2018-08-15 19:50 | NUR ---
M/S RN NOTES PATIENT LYING IN BED, RESTING. NO RESPIRATORY DISTRESS NOTED, ON NASAL CANULA AT 2L, TOLERATING WELL. PAIN TOLERABLE AT THIS TIME AT 4/10 PAIN ON BOTH HANDS AND ARMS. PATIENT'S NEEDS ATTENDED. IV ACCESS SITE INTACT AND PATENT. BED ON LOWEST LOCKED POSITION, CALL LIGHT WITHIN REACH. WILL ENDORSE TO ONCOMING NURSE.
[2018-08-15 20:00] VITALS: BP 118/63
--- NOTE | 2018-08-15 20:00 | NUR ---
MS/RN PATIENT APPEAR SLEEPING, APPEAR COMFORTABLE, NO SIGNS OF DISTRESS NOTED, CALL LIGHT IN R EACH. WILL MONITOR.
[2018-08-15] MEDS: MONTELUKAST SODIUM (10MG) 10 MG TABLET PO SCH (22:19)
--- NOTE | 2018-08-15 22:23 | NUR ---
MS/RN PATIENT IS AWAKE, ALERT, ORIENTED, DUE MEDS WERE GIVEN, TOLERATED.
[2018-08-16] MEDS: IPRATROPIUM NEB FS 0.5 MG/2.5 ML AMPUL.NEB NEB SCH ×6 (00:07→19:44)
[2018-08-16] MEDS: ALBUTEROL FS 2.5 MG/3 ML VIAL.NEB NEB SCH ×6 (00:07→19:44)
[2018-08-16] MEDS: VANCOMYCIN 0.75 GM in IV D5W 250 ML IV SCH ×2 (01:34→14:10)
--- NOTE | 2018-08-16 02:22 | NUR ---
MS/RN PATIENT IS SLEEPING, AROUSABLE, APPEAR COMFORTABLE, NO DISTRESS NOTED, CALL LIGHT IN REACH. WILL CONTINUE TO MONITOR.
--- NOTE | 2018-08-16 06:16 | NUR ---
MS/RN PATIENT IS STILL SLEEPING AT THIS TIME, AROUSBLE, APPEAR COMFORTABLE, NO SIGNS OF DISTRESS NOTED, ALL NEEDS ATTENDED AT THIS TIME, WILL CONTINUE TO MONITOR.
[2018-08-16 06:48] LABS: BASOPHILS % (AUTO) 0.1 % (0.0-2.0); HEMATOCRIT 27 % (39-51); HEMOGLOBIN 9.1 g/dL (13.5-17.5); LYMPHOCYTES # (AUTO) 0.7 /CMM (0.8-4.8); LYMPHOCYTES % (AUTO) 7.5 % (20.0-44.0); MEAN CORPUSCULAR HGB CONC 34 g/dl (31.0-36.0); MEAN CORPUSCULAR VOLUME 88 fL (80-96); MONOCYTES % (AUTO) 11.4 % (2.0-12.0); NEUTROPHILS # (AUTO) 7.2 /CMM (1.8-8.9); PLATELET COUNT (AUTO) 275 /CMM (150-450); RED BLOOD CELL COUNT(AUTO) 3.03 MIL/uL (4.5-6.0); WHITE BLOOD COUNT (AUTO) 8.8 K/uL (4.3-11.0)
[2018-08-16 06:55] LABS: CALCIUM, SERUM 8.8 mg/dL (8.5-10.1); CARBON DIOXIDE 23 mmol/L (21-32); CHLORIDE 98 mmol/L (98-107); CREATININE 0.6 mg/dL (0.6-1.3); GLUCOSE 104 mg/dL (74-106); MAGNESIUM 1.7 mg/dL (1.8-2.4); SODIUM SERUM 132 mmol/L (136-145); UREA NITROGEN, BLOOD 10 mg/dL (7-18)
[2018-08-16 08:00] VITALS: BP 123/60
[2018-08-16] MEDS: ENSURE ENLIVE 237 ML LIQUID (VANILLA) PO SCH ×3 (09:36→18:07)
[2018-08-16] MEDS: DAKINS QUARTER STRENGTH (0.125%) 480 ML BOTTLE TOP SCH (09:37)
[2018-08-16] MEDS: FLUTICASONE/VILANTEROL 1 EACH BLST.W.DEV IH SCH (09:37)
[2018-08-16] MEDS: FUROSEMIDE 40 MG TABLET PO SCH (09:53)
[2018-08-16] MEDS: DOCUSATE SODIUM 100 MG CAPSULE PO SCH ×2 (09:53→17:00)
[2018-08-16] MEDS: CYANOCOBALAMIN 500 MCG TABLET PO SCH (09:53)
[2018-08-16] MEDS: MULTIVIT W/MINERALS 1 TAB TABLET PO SCH (09:53)
[2018-08-16] MEDS: ATORVASTATIN 10 MG TABLET PO SCH (09:53)
[2018-08-16] MEDS: cetrizine 10 MG TABLET PO SCH (09:54)
[2018-08-16] MEDS: LIDOCAINE 5% (PATCH) 1 EA PATCH TP SCH (09:54)
[2018-08-16] MEDS: Magnesium 1GM/D5W 100ML PREMIX 100 ML IV SCH ×2 (09:55→11:39)
[2018-08-16] MEDS: HYDROCODONE/APAP 5/325MG 1 EACH TABLET PO PRN ×2 (10:09→22:30)
[2018-08-16] MEDS ORDERED: COLCHICINE 0.6 MG TABLET PO ONE (11:30)
[2018-08-16] MEDS: BUDESONIDE RESPULE INH 0.5 MG/2 ML AMPUL.NEB IH SCH ×2 (11:44→21:32)
[2018-08-16] MEDS: MUPIROCIN OINT 2% 22 GM TUBE TP SCH ×2 (14:10→22:20)
--- NOTE | 2018-08-16 15:00 | NUR ---
mg replacement for low mg level.tolerated well.
[2018-08-16] MEDS: ENALAPRIL MALEATE (5 MG) 5 MG TABLET PO SCH ×2 (15:20→17:00)
[2018-08-16 16:00] VITALS: BP 116/64
[2018-08-16] MEDS: SENNOSIDES 8.6 MG TABLET PO SCH (17:44)
[2018-08-16] MEDS: IV NS 0.9% 1,000 ML IV PRN (17:45)
--- NOTE | 2018-08-16 18:00 | NUR ---
wound caredone.family in to visit.medicated x 1 for arm and leg pain.
[2018-08-16] MEDS: CEFTRIAXONE 2 G in IV D5W 100 ML IV SCH (18:06)
--- NOTE | 2018-08-16 18:48 | NUR ---
vasotec held due to borderline bp.
--- NOTE | 2018-08-16 18:49 | NUR ---
loose stool x2, colace and senokot held this kiesha.
--- NOTE | 2018-08-16 19:20 | NUR ---
RN OPEN NOTES RECEIVED PATIENT RESTING IN BED, EASILY AROUSABLE. A/OX2. NO SIGNS OF DISTRESS OR DISCOMFORT. BREATHING EVEN AND UNLABORED. ON 3LPM O2 VIA NC. IV ACCESS IN LFA WITH NS INFUSING, PATENT AND INTACT, NO SIGNS OF REDNESS OR INFILTRATION. BED IN LOW LOCKED POSITION WITH SIDE RAILS X3. CALL LIGHT WITHIN REACH. WILL CONTINUE TO MONITOR.
[2018-08-16 20:00] VITALS: BP 159/72
--- NOTE | 2018-08-16 21:34 | NUR ---
RN CLOSING NOTES REPORT GIVEN TO PAUL TELLES FOR EDUARDO. PATIENT TRANSFERRED TO DE-2 ROOM 205 IN STABLE CONDITION. NO SIGNS OR SYMPTOMS OF DISTRESS. BREATHING EVEN AND UNLABORED. ALL PATIENT BELONGINGS ACCOUNTED FOR AND ARE WITH PATIENT.
[2018-08-16 21:35] VITALS: BP 116/61
--- NOTE | 2018-08-16 21:35 | NUR ---
STOCK CLERK NOTES PATIENT ARRIVED ON THE UNIT AT 2130 VIA BED, ASSISTED BY BAN GRECO AND VY. VITALS UPON TRANSFER WERE: BP 116/61, PULSE 81, RESPIRATORY 20, TEMP 99.0, 95% O2 SAT ON RA. NO SIGNS OF RESPIRATORY DISTRESS. PATIENT DENIES SOB. SAFETY PRECAUTIONS IMPLEMENTED; CALL LIGHT WITHIN REACH, BED LOW, BED LOCKED, SIDERAILS UP X3. PATIENT ON 3LPM O2 NOW VIA NC. IV ACCESS IN LFA WITH NS INFUSING, PATENT AND INTACT. WILL CONTINUE TO MONITOR.
[2018-08-16] MEDS: MONTELUKAST SODIUM (10MG) 10 MG TABLET PO SCH (22:16)
[2018-08-17] MEDS: IPRATROPIUM NEB FS 0.5 MG/2.5 ML AMPUL.NEB NEB SCH ×7 (00:08→23:33)
[2018-08-17] MEDS: ALBUTEROL FS 2.5 MG/3 ML VIAL.NEB NEB SCH ×7 (00:08→23:33)
[2018-08-17] MEDS: VANCOMYCIN 0.75 GM in IV D5W 250 ML IV SCH ×2 (01:01→12:03)
[2018-08-17 06:43] LABS: BASOPHILS % (AUTO) 0.1 % (0.0-2.0); HEMATOCRIT 25 % (39-51); HEMOGLOBIN 8.4 g/dL (13.5-17.5); LYMPHOCYTES # (AUTO) 0.7 /CMM (0.8-4.8); LYMPHOCYTES % (AUTO) 13.2 % (20.0-44.0); MEAN CORPUSCULAR HGB CONC 34 g/dl (31.0-36.0); MEAN CORPUSCULAR VOLUME 89 fL (80-96); MONOCYTES # (AUTO) 0.7 /CMM (0.1-1.30); MONOCYTES % (AUTO) 13.5 % (2.0-12.0); NEUTROPHILS # (AUTO) 3.8 /CMM (1.8-8.9); NEUTROPHILS % (AUTO) 73.2 % (43.0-81.0); PLATELET COUNT (AUTO) 257 /CMM (150-450); RED BLOOD CELL COUNT(AUTO) 2.82 MIL/uL (4.5-6.0); WHITE BLOOD COUNT (AUTO) 5.3 K/uL (4.3-11.0)
--- NOTE | 2018-08-17 06:54 | NUR ---
RN CLOSING NOTES PATIENT IS ASLEEP, RESTING COMFORTABLY IN BED, EASILY AWOKEN WHEN SPOKEN TO. PATIENT IS A/O X 3 WHEN AWAKE, ABLE TO MAKE NEEDS KNOWN. NO SIGNS OF RESPIRATORY DISTRESS OR SHORTNESS OF BREATH. PATIENT ON 2L O2 VIA NC AND TOLERATING WELL. NO SIGNS OF FACIAL GRIMACING OR DISCOMFORT NOTED AT THIS TIME. PT WITH LFA IV INTACT AND PATENT. PATIENT TURNED Q2H. PT KEPT CLEAN, DRY, AND COMFORTABLE. WOUND CARE MEASURES COMPLETE. ALL NEEDS WERE ATTENDED TO. ALL DUE MEDS GIVEN AT THIS TIME. SAFETY PRECAUTIONS IMPLEMENTED; CALL LIGHT WITHIN REACH, BED LOW, BED LOCKED, SIDE RAILS UP X2. WILL ENDORSE TO ONCOMING AM RN FOR CONTINUITY OF CARE.
[2018-08-17 06:56] LABS: CALCIUM, SERUM 8.7 mg/dL (8.5-10.1); CARBON DIOXIDE 24 mmol/L (21-32); CHLORIDE 102 mmol/L (98-107); CREATININE 0.5 mg/dL (0.6-1.3); GLUCOSE 98 mg/dL (74-106); MAGNESIUM 1.8 mg/dL (1.8-2.4); PHOSPHORUS 3.2 mg/dL (2.5-4.9); POTASSIUM 3.7 mmol/L (3.5-5.1); SODIUM SERUM 135 mmol/L (136-145); UREA NITROGEN, BLOOD 9 mg/dL (7-18)
--- NOTE | 2018-08-17 07:25 | NUR ---
MS RN OPENING NOTES RECEIVED PT IN BED WITH HOB ELEVATED, SLEEPING COMFORTABLY. PT IS EASILY AROUSABLE. A/O X3, AFEBRILE. RESPIRATIONS ARE EVEN AND UNLABORED, NOT IN ANY ACUTE DISTRESS NOTED. PT DENIES C/O PAIN 310 TO BOTH HANDS, NO C/O SOB, N/V. WILL MONITOR PAIN AND MEDICATE ACCORDINGLY. IV ACCESS TO LFA INTACT, NO INFILTRATION NOTED. DRESSING KEPT CLEAN AND DRY. SAFETY MEASURES ARE IN PLACE. INSTRUCTED PT TO USE CALL LIGHT WHEN ASSISTANCE IS NEEDED, CALL LIGHT IS LEFT WITHIN REACH. WILL MONITOR THROUGHOUT SHIFT FOR CONTINUITY OF CARE.
[2018-08-17 08:00] VITALS: BP 139/61
[2018-08-17] MEDS: cetrizine 10 MG TABLET PO SCH (08:28)
[2018-08-17] MEDS: FUROSEMIDE 40 MG TABLET PO SCH (08:28)
[2018-08-17] MEDS: ENSURE ENLIVE 237 ML LIQUID (VANILLA) PO SCH ×3 (08:28→17:02)
[2018-08-17] MEDS: DOCUSATE SODIUM 100 MG CAPSULE PO SCH ×2 (08:28→16:27)
[2018-08-17] MEDS: MULTIVIT W/MINERALS 1 TAB TABLET PO SCH (08:28)
[2018-08-17] MEDS: ATORVASTATIN 10 MG TABLET PO SCH (08:29)
[2018-08-17] MEDS: HYDROCODONE/APAP 5/325MG 1 EACH TABLET PO PRN (08:29)
[2018-08-17] MEDS: ENALAPRIL MALEATE (5 MG) 5 MG TABLET PO SCH ×2 (08:29→16:27)
[2018-08-17] MEDS: CYANOCOBALAMIN 500 MCG TABLET PO SCH (08:29)
[2018-08-17] MEDS: DAKINS QUARTER STRENGTH (0.125%) 480 ML BOTTLE TOP SCH (08:33)
[2018-08-17] MEDS: FLUTICASONE/VILANTEROL 1 EACH BLST.W.DEV IH SCH (08:34)
[2018-08-17] MEDS: LIDOCAINE 5% (PATCH) 1 EA PATCH TP SCH (08:48)
[2018-08-17] MEDS: BUDESONIDE RESPULE INH 0.5 MG/2 ML AMPUL.NEB IH SCH ×2 (09:00→20:29)
[2018-08-17] MEDS: MUPIROCIN OINT 2% 22 GM TUBE TP SCH (10:16)
--- NOTE | 2018-08-17 11:50 | NUR ---
MS RN NOTES-- PT SEEN AND EXAMINED BY GARRETT GERONIMO ID.
--- NOTE | 2018-08-17 12:00 | NUR ---
MS RN NOTES-- PT WAS SEEN AND EXAMINED BY DR. WELSH.
[2018-08-17] MEDS: IV NS 0.9% 1,000 ML IV PRN (12:03)
--- NOTE | 2018-08-17 13:27 | NUR ---
MS RN NOTES-- PT ABLE TO MAKE NEEDS KNOWN. NEEDS MET AND RENDERED. PT NOT IN AN APPARENT DISTRESS. WILL CONTINUE TO MONITOR.
--- NOTE | 2018-08-17 14:01 | NUR ---
MS RN NOTES-- DRESSING CHANGE DONE TO R PROXIMAL LEG, RIGHT KNEE, AND SACRAL. PT TOLERATED WELL. PT KEPT CLEAN AND DRY. WILL CONTINUE TO MONITOR.
[2018-08-17 16:00] VITALS: BP 118/56
[2018-08-17] MEDS: COLCHICINE 0.6 MG TABLET PO SCH (16:34)
[2018-08-17] MEDS: SENNOSIDES 8.6 MG TABLET PO SCH (17:01)
[2018-08-17] MEDS: CEFTRIAXONE 2 G in IV D5W 100 ML IV SCH (17:01)
--- NOTE | 2018-08-17 18:32 | NUR ---
MS RN CLOSING NOTES NEEDS MET AND ANTICIPATED. PT REMAINS A/O X, AFEBRILE. RESPIRATIONS ARE EVEN AND UNLABORED, NOT IN ANY ACUTE DISTRESS NOTED. PT DENIES ANY PAIN AT THIS TIME, NO C/O SOB, N/V. IV ACCESS TO LFA INTACT, NO INFILTRATION NOTED. DRESSING KEPT CLEAN AND DRY. SAFETY MEASURES ARE IN PLACE. REMINDED PT TO USE CALL LIGHT WHEN ASSISTANCE IS NEEDED, CALL LIGHT IS LEFT WITHIN REACH. WILL MONITOR THROUGHOUT SHIFT FOR CONTINUITY OF CARE.
--- NOTE | 2018-08-17 19:32 | NUR ---
RN OPEN NOTES RECEIVED PATIENT AWAKE IN BED. A/OX3. NO SIGNS OF DISTRESS OR DISCOMFORT. BREATHING EVEN AND UNLABORED. ON 2LPM O2 VIA NC. IV ACCESS IN LFA WITH NS INFUSING, PATENT AND INTACT, NO SIGNS OF REDNESS OR INFILTRATION. BED IN LOW LOCKED POSITION WITH SIDE RAILS X3. CALL LIGHT WITHIN REACH. WILL CONTINUE TO MONITOR.
[2018-08-17 20:00] VITALS: BP 96/57
[2018-08-17] MEDS: MONTELUKAST SODIUM (10MG) 10 MG TABLET PO SCH (21:33)
[2018-08-17] MEDS: CELECOXIB 100 MG CAPSULE PO SCH (21:33)
[2018-08-18] MEDS: VANCOMYCIN 0.75 GM in IV D5W 250 ML IV SCH (01:22)
[2018-08-18] MEDS: IPRATROPIUM NEB FS 0.5 MG/2.5 ML AMPUL.NEB NEB SCH ×3 (04:31→11:49)
[2018-08-18] MEDS: ALBUTEROL FS 2.5 MG/3 ML VIAL.NEB NEB SCH ×3 (04:31→11:49)
[2018-08-18 06:34] LABS: CALCIUM, SERUM 8.9 mg/dL (8.5-10.1); CARBON DIOXIDE 28 mmol/L (21-32); CHLORIDE 102 mmol/L (98-107); CREATININE 0.5 mg/dL (0.6-1.3); GLUCOSE 95 mg/dL (74-106); POTASSIUM 3.5 mmol/L (3.5-5.1); SODIUM SERUM 136 mmol/L (136-145); UREA NITROGEN, BLOOD 8 mg/dL (7-18)
[2018-08-18] MEDS: HYDROCODONE/APAP 5/325MG 1 EACH TABLET PO PRN (06:46)
[2018-08-18] MEDS: IV NS 0.9% 1,000 ML IV PRN (06:56)
--- NOTE | 2018-08-18 07:18 | NUR ---
RN OPENING NOTE PT WAS RECEIVED IN BED AT LOWEST AND LOCKED POSITION WITH SIDE RAILS UP X2, A/O X3 BREATHING EVEN AND UNLABORED ON 2L VIA NC, NO CURRENT COMPLAINTS OF ANY PAIN OR DISTRESS AT THIS TIME, NOTED TO HAVE SLIGHT ARM SWELLING, IV IS PATENT AND INTACT, POSSIBLE D/C TODAY, SAFETY PRECAUTIONS IN PLACE, CALL LIGHT WITHIN, WILL MONITOR ACCORDINGLY
[2018-08-18 07:21] LABS: IRON, SERUM 31 ug/dl (50-175); TOTAL IRON BINDING CAPACITY 94 ug/dl (250-450)
--- NOTE | 2018-08-18 07:28 | NUR ---
RN CLOSING NOTES PATIENT AWAKE IN BED. A/OX3. NO SIGNS OF DISTRESS OR DISCOMFORT. BREATHING EVEN AND UNLABORED. ON 2LPM O2 VIA NC. IV ACCESS IN LFA WITH NS INFUSING, PATENT AND INTACT, NO SIGNS OF REDNESS OR INFILTRATION. ALL NEEDS MET. NO SIGNIFICANT CHANGES THROUGH THE NIGHT. PATIENT REPOSITIONED Q2H AND PRN. BED IN LOW LOCKED POSITION WITH SIDE RAILS X3. CALL LIGHT WITHIN REACH. ENDORSED TO AM SHIFT FOR EDUARDO.
[2018-08-18 07:39] LABS: FERRITIN 665 ng/mL (8-388)
[2018-08-18 08:00] VITALS: BP 110/59
[2018-08-18] MEDS: cetrizine 10 MG TABLET PO SCH (08:57)
[2018-08-18] MEDS: CYANOCOBALAMIN 500 MCG TABLET PO SCH (08:57)
[2018-08-18 08:58] VITALS: BP 110/59
[2018-08-18] MEDS: DOCUSATE SODIUM 100 MG CAPSULE PO SCH (08:58)
[2018-08-18] MEDS: COLCHICINE 0.6 MG TABLET PO SCH (08:58)
[2018-08-18] MEDS: ENALAPRIL MALEATE (5 MG) 5 MG TABLET PO SCH (08:58)
[2018-08-18] MEDS: MULTIVIT W/MINERALS 1 TAB TABLET PO SCH (08:58)
[2018-08-18] MEDS: ATORVASTATIN 10 MG TABLET PO SCH (08:58)
[2018-08-18] MEDS: CELECOXIB 100 MG CAPSULE PO SCH (08:58)
[2018-08-18] MEDS: FUROSEMIDE 40 MG TABLET PO SCH (08:59)
[2018-08-18] MEDS: DAKINS QUARTER STRENGTH (0.125%) 480 ML BOTTLE TOP SCH (09:01)
[2018-08-18] MEDS: LIDOCAINE 5% (PATCH) 1 EA PATCH TP SCH (09:01)
[2018-08-18] MEDS: FLUTICASONE/VILANTEROL 1 EACH BLST.W.DEV IH SCH (09:01)
[2018-08-18] MEDS: ENSURE ENLIVE 237 ML LIQUID (VANILLA) PO SCH (09:02)
[2018-08-18] MEDS: BUDESONIDE RESPULE INH 0.5 MG/2 ML AMPUL.NEB IH SCH (09:11)
[2018-08-18] MEDS ORDERED: CELE100C PO (10:22)
[2018-08-18] MEDS ORDERED: Colchicine PO (10:22)
[2018-08-18] MEDS ORDERED: DOXY100C2 PO (10:23)
[2018-08-18] MEDS: MUPIROCIN OINT 2% 22 GM TUBE TP SCH ×2 (11:17)
--- NOTE | 2018-08-18 12:55 | NUR ---
DISCHARGE NOTE PT WAS D/C IN MEDICALLY STABLE CONDITION BACK HOME WITH [facility] AT THIS TIME. IV AND ID BAND WERE REMOVED. ALL D/C PAPERWORK, EXITCARE, BELONGINGS LIST, AND PRESCRIPTION WERE DISCUSSED, SIGNED, AND HANDED TO THE PATIENT. ALL BELONGINGS WERE HANDED TO PT. PHOTOS OF SKIN WERE TAKEN AND PLACED IN THE CHART, ALL NEEDS WERE ATTENDED TO DURING HIS STAY. HE WAS TAKEN DOWN IN HIS OWN WHEELCHAIR AT THIS TIME BY TRANSPORT THAT WAS ARRANGED BY HIS SON.
== END 2018-08-18 12:55 | DRG 603 ==
LOC: ER 11:13 → MED 12:31 → MEDSG2 08-16 21:30
PROVIDERS: ADMIT Hospitalist; ATTEND Hospitalist
PROC: 0HBRXZZ Excision of Toe Nail, External Approach (ICD-10-PCS; principal; 2018-08-14)
DX: L03.113 Cellulitis of right upper limb (principal); J98.11 Atelectasis; C90.00 Multiple myeloma not having achieved remission; E87.1 Hypo-osmolality and hyponatremia; E44.0 Moderate protein-calorie malnutrition; M18.9 Osteoarthritis of first carpometacarpal joint, unspecified; I11.0 Hypertensive heart disease with heart failure; I50.9 Heart failure, unspecified; E78.5 Hyperlipidemia, unspecified; I25.10 Atherosclerotic heart disease of native coronary artery without angina pectoris; I48.91 Unspecified atrial fibrillation; Z95.0 Presence of cardiac pacemaker; J44.9 Chronic obstructive pulmonary disease, unspecified; Z85.038 Personal history of other malignant neoplasm of large intestine; Z95.1 Presence of aortocoronary bypass graft; Z96.652 Presence of left artificial knee joint; Z87.891 Personal history of nicotine dependence; M11.241 Other chondrocalcinosis, right hand; M11.231 Other chondrocalcinosis, right wrist; D63.8 Anemia in other chronic diseases classified elsewhere; Z86.73 Personal history of transient ischemic attack (TIA), and cerebral infarction without residual deficits; Z79.01 Long term (current) use of anticoagulants; E83.42 Hypomagnesemia; Z68.27 Body mass index [BMI] 27.0-27.9, adult; B35.1 Tinea unguium; S80.811A Abrasion, right lower leg, initial encounter; X58.XXXA Exposure to other specified factors, initial encounter; Y92.89 Other specified places as the place of occurrence of the external cause; L89.150 Pressure ulcer of sacral region, unstageable; S81.811A Laceration without foreign body, right lower leg, initial encounter; E11.9 Type 2 diabetes mellitus without complications; I25.2 Old myocardial infarction; M11.841 Other specified crystal arthropathies, right hand
CPT/HCPCS: 36415; 71045-TC; 73130-TC; 73200-TC; 80048-TC; 80061-TC; 80076-TC; 80202-TC; 82728-TC; 83540-TC; 83605-TC; 83735-TC; 84100-TC; 84443-TC; 84484-TC; 84550-TC; 85025-TC; 85730-TC; 86140-TC; 86403-TC; 86431-TC; 87040-TC; 87070-TC; 87081-TC; 92526; 92611-TC; 93971-TC; 94799-TC; 97110-TC; 97112-TC; 97530-TC; A6253; A6403; G0378; J0696; J2543; J3370; J3475; J7030; J7040; J7060